=== PATIENT | male | born 1985 | race Caucasian/White ===

== ENCOUNTER 2021-06-03 11:31 | Inpatient (IN) | payer MEDICAID ==
[~2021-06-03] VITALS: Ht 177.8 cm; Wt 123.4 kg
[2021-06-03] MEDS ORDERED: ACETAMINOPHEN 500 MG TABLET PO ONE (12:00)
[2021-06-03] MEDS ORDERED: IV NORMAL SALINE 1000ML BAG 1,000 ML IV SCH (12:00)
[2021-06-03] MEDS ORDERED: KETOROLAC 15 MG/ML VIAL. IVP ONE (12:00)
--- NOTE | 2021-06-03 12:03 | PHYS DOC ---
Past Medical History Past Medical History Methamphetamine abuse Past Surgical History: No Surgical History Smoking Status: Current Every Day Smoker Alcohol Use: None Drug Use: Amphetamine General Adult EDM: Chief Complaint: SHORTNESS OF BREATH HPI: HPI: 36-year-old male presents to the emergency department complaining of multiple complaints including sweatiness, chest pain, shortness of breath, cough for the past several days. He also reports a low-grade fever and chills during this timeframe. He has not been vaccinated for COVID-19. No obvious sick contacts reported. The patient denies nausea, vomiting, abdominal pain, urinary symptoms, recent trauma, or any other complaints. Review of Systems: Review of Systems: Review of systems otherwise negative except for what was mentioned in the HPI Heart Score: C/O Chest Pain: Yes HEART Score for Chest Pain: HEART Score for Chest Pain Response (Comments) Value History Slighlty/Non-Suspicious 0 ECG Normal 0 Age < 45 0 Risk Factors 1 or 2 Risk Factors 1 Total 1 Allergies: Allergies: Allergies Coded Allergies Type Severity Reaction Last Updated Verified No Known Drug Allergies 06/03/21 No Physical Exam: PE: Constitutional: No acute distress, non-toxic appearance. Data for HENT: Atraumatic, bilateral external ears normal, nose normal. Eyes: PERRLA, EOMI, conjunctiva normal, no discharge. Neck: Normal range of motion, supple, no stridor. Cardiovascular: Heart rate regular rhythm. 2+ radial pulses Lungs & Thorax: No respiratory distress, symmetrical expansion. Abdomen: Soft, no tenderness Skin: Warm, dry. Extremities: No tenderness, no cyanosis, ROM intact, no edema. Neurologic: Alert and oriented X 3, normal motor function, normal sensory function, no focal deficits noted. Non ataxic gait. GCS 15. Psychologic: Affect normal, judgment normal, mood normal. Current Patient Data: Labs: Laboratory Tests Test 06/03/21 10:56 06/03/21 12:14 06/03/21 12:20 06/03/21 13:38 SARS-CoV-2 Antigen (Rapid) Positive (NEGATIVE) Influenza Type A Antigen Negative (NEGATIVE) Influenza Type B Antigen Negative (NEGATIVE) Urine Collection Type Unknown Urine Color Abril Urine Clarity Clear Urine pH 6.5 (<5.0-8.0) Urine Specific [place] 1.025 (1.000-1.030) Urine Protein 100 mg/dL (NEG-TRACE) Urine Glucose (UA) Negative mg/dL (NEG) Urine Ketones (Stick) Negative mg/dL (NEG) Urine Blood Negative (NEG) Urine Nitrite Negative (NEG) Urine Bilirubin Negative (NEG) Urine Urobilinogen Dipstick 4.0 mg/dL (0.2 mg/dL) Urine Leukocyte Esterase Negative (NEG) Urine RBC 0 /HPF (0-2) Urine WBC 1-4 /HPF (0-4) Urine Squamous Epithelial Cells Few /LPF Urine Bacteria 0 /HPF (0-FEW) Urine Mucus Slight /LPF Urine Opiates Screen Neg (NEG) Urine Methadone Screen Neg (NEG) Urine Barbiturates Neg (NEG) Urine Phencyclidine Screen Neg (NEG) Urine Amphetamine/Methamphetamine Pos (NEG) Urine Benzodiazepines Screen Pos (NEG) Urine Cocaine Screen Neg (NEG) Urine Cannabinoids Screen Pos (NEG) Urine Ethyl Alcohol Neg (NEG) White Blood Count 9.2 x10^3/uL (4.0-11.0) Red Blood Count 4.74 x10^6/uL (4.30-5.70) Hemoglobin 14.5 g/dL (13.0-17.5) Hematocrit 43.0 % (39.0-53.0) Mean Corpuscular Volume 91 fL (79-100) Mean Corpuscular Hemoglobin 31 pg (25-35) Mean Corpuscular Hemoglobin Concent 34 g/dL (31-37) Red Cell Distribution Width 14.7 % (11.5-14.5) Platelet Count 251 x10^3/uL (140-400) Neutrophils (%) (Auto) 81 % (31-73) Lymphocytes (%) (Auto) 11 % (24-48) Monocytes (%) (Auto) 7 % (0-9) Eosinophils (%) (Auto) 0 % (0-3) Basophils (%) (Auto) 0 % (0-3) Neutrophils # (Auto) 7.5 x10^3/uL (1.8-7.7) Lymphocytes # (Auto) 1.0 x10^3/uL (1.0-4.8) Monocytes # (Auto) 0.7 x10^3/uL (0.0-1.1) Eosinophils # (Auto) 0.0 x10^3/uL (0.0-0.7) Basophils # (Auto) 0.0 x10^3/uL (0.0-0.2) Sodium Level 135 mmol/L (136-145) Potassium Level 4.3 mmol/L (3.5-5.1) Chloride Level 99 mmol/L (98-107) Carbon Dioxide Level 24 mmol/L (21-32) Anion Gap 12 (6-14) Blood Urea Nitrogen 16 mg/dL (8-26) Creatinine 1.1 mg/dL (0.7-1.3) Estimated GFR (Cockcroft-Gault) 76.6 BUN/Creatinine Ratio 15 (6-20) Glucose Level 109 mg/dL (70-99) Calcium Level 8.6 mg/dL (8.5-10.1) Total Bilirubin 1.0 mg/dL (0.2-1.0) Aspartate Amino Transf (AST/SGOT) 37 U/L (15-37) Alanine Aminotransferase (ALT/SGPT) 49 U/L (16-63) Alkaline Phosphatase 109 U/L (46-116) Troponin I Quantitative 0.049 ng/mL (0.000-0.055) MC-Rji-F-Type Natriuretic Peptide 7641 pg/mL (0-124) Total Protein 6.9 g/dL (6.4-8.2) Albumin 3.2 g/dL (3.4-5.0) Albumin/Globulin Ratio 0.9 (1.0-1.7) Vital Signs: Vital Signs Date Time Temp Pulse Resp B/P (MAP) Pulse Ox O2 Delivery O2 Flow Rate FiO2 06/03/21 11:34 99.7 138 27 151/113 93 Room Air 99.7 EKG: EKG: Sinus tachycardia rate of 139, no ST-T wave changes, no ectopic beats, normal axis, normal KS, QRS, and QTc intervals. Impression: Tachycardic, no STEMI, no ischemic ST-T wave changes interpreted by meCamden D.O. Radiology/Procedures: Radiology/Procedures: XR CHEST 1V CLINICAL INDICATIONS: Reason: shortness of breath / Spl. Instructions: / History: COMPARISON: None available. Findings: There is mild bilateral diffuse interstitial pulmonary edema. Mild vascular congestion is seen. No pleural effusion or pneumothorax is evident. Significant cardiomegaly is seen. The the mediastinum is unremarkable. IMPRESSION: Mild CHF. Cardiomegaly. Pericardial effusion is possible. Electronically signed by: Edwin Gardner MD (06/03/2021 12:27 PM) . CTA CHEST INDICATION: shortness of breath, cough, cp, covid + Comparison: Chest radiograph 06/03/2021. TECHNIQUE: Following the uneventful administration of intravenous contrast, 100 cc Omnipaque 350, axial CT sections were obtained through the lungs and upper abdomen. Multiplanar reconstructions and MIP images were obtained. PQRS compliance statement: One or more of the following individualized dose reduction techniques were utilized for this examination: 1. Automated exposure control 2. Adjustment of the mA and/or kV according to patient size 3. Use of iterative reconstruction technique FINDINGS: Pulmonary arteries: No evidence of central or segmental pulmonary thromboembolic disease. Subsegmental branches not well evaluated due to respiratory motion. Dilated pulmonary trunk measures 38 mm. Lungs and Airways: Mild scattered groundglass opacities. Interlobular septal thickening. Bronchial wall thickening. Pleura: Small bilateral pleural effusions. Heart and Mediastinum: The visualized thyroid is normal in size and attenuation. No axillary or supraclavicular lymphadenopathy. No mediastinal, hilar or retrocrural lymphadenopathy. Marked cardiomegaly. Pericardial effusion measuring up to 12 mm in thickness. The great vessels of the thorax are normal. Abdomen: Limited images through the upper abdomen show no abnormality of the visualized organs. Bones and Soft Tissues: The visualized bones and chest wall soft tissues are within normal limits. IMPRESSION: 1. No evidence of central or segmental pulmonary thromboembolic disease. Subsegmental branches not well evaluated due to respiratory motion. 2. Mild scattered groundglass opacities with interlobular septal thickening consistent with pulmonary edema. Superimposed infection is not excluded. 3. Marked cardiomegaly with a pericardial effusion measuring 12 mm in thickness. 4. Small bilateral pleural effusions. 5. Dilated pulmonary trunk, which can be seen with pulmonary hypertension. Electronically signed by: Darrius Mckenna MD (06/03/2021 2:37 PM) Course & Med Decision Making: Course & Med Decision Making Patient remained presumably tachycardic, findings are suggestive of a pericardial effusion with COVID-19 viral infection. His CTA was negative for pulmonary embolism. I discussed case with cardiology who will see the patient in the emergency department. Patient will be admitted to the hospital under Dr. Patterson. My Orders - CAMDEN PORTILLO DO Procedure Category Date Status Time Vital Signs Monitoring ER 06/03/21 Transmitted 11:58 Blood Pressure ER 06/03/21 Transmitted Monitoring 11:58 Cardiac Monitoring ER 06/03/21 Transmitted 11:58 Oxygen Delivery JENNIFER 06/03/21 In Process Cbc W Autodiff LAB 06/03/21 Complete 11:58 Ua W Microscopic LAB 06/03/21 Complete 11:58 Drugs Of Abuse Ur LAB 06/03/21 Complete 11:[address] 06/03/21 Resulted 11:58 Troponin I Stat BANNER 06/03/21 In Process 11:58 Troponini LAB 06/03/21 Logged 14:58 Troponini LAB 06/03/21 Logged 17:58 12 Lead Ekg EKG 06/03/21 In Process 11:58 12 Lead Ekg EKG 06/03/21 In Process 12:28 Pulse Oximetry: BANNER 06/03/21 In Process Standing Order 11:58 Iv Normal Saline PHA 06/03/21 Complete 1000ml Bag (Iv Sodium 12:00 Ketorolac 15mg Vial PHA 06/03/21 Complete (Toradol 15mg Vial) 12:00 Acetaminophen PHA 06/03/21 Complete (Tylenol) 12:00 Chest Ap Only RAD 06/03/21 Resulted 11:58 Sars Antigen [place]ina Rapid LAB 06/03/21 Complete 11:58 Influenza A&B Rapid LAB 06/03/21 Complete 11:58 Comprehensive LAB 06/03/21 Complete Metabolic Panel 12:56 Nt-Pro Bnp LAB 06/03/21 Complete 12:56 Troponini LAB 06/03/21 Complete 12:56 Iohexol 350 Mg/Ml PHA 06/03/21 Complete (Omnipaque 350 Mg/Ml) 14:15 Furosemide Inj (Lasix) PHA 06/03/21 Complete 15:00 Er Bridge Order ADT 06/03/21 Transmitted 15:12 Code Status CODE 06/03/21 Transmitted 15:12 Vital Signs, Per Unit JENNIFER 06/03/21 In Process Protocol 15:12 Cardiac DIET 06/03/21 Transmitted Dinner Ambulate With JENNIFER 06/03/21 In Process Assistance 15:12 Cbc W Autodiff LAB 06/04/21 Verified 06:00 Basic Metabolic Panel LAB 06/04/21 Verified 06:00 Ondansetron Pf PHA 06/03/21 In Process (Zofran) 15:15 Consult Physician By CONS 06/03/21 Transmitted Name 15:12 Departure Departure Impression: Primary Impression: Pericardial effusion Additional Impression: COVID-19 Disposition: 09 ADMITTED INPATIENT Admitting Physician: ELISEO Dangelo) Condition: STABLE Referrals: NO PCP (PCP) CAMDEN PORTILLO DO Jun 03, 2021 12:03
--- NOTE | 2021-06-03 12:30 | RAD ---
XR CHEST 1V CLINICAL INDICATIONS: Reason: shortness of breath / Spl. Instructions: / History: COMPARISON: None available. Findings: There is mild bilateral diffuse interstitial pulmonary edema. Mild vascular congestion is s een. No pleural effusion or pneumothorax is evident. Significant cardiomegaly is seen. The the medias tinum is unremarkable. IMPRESSION: Mild CHF. Cardiomegaly. Pericardial effusion is possible. Electronically signed by: Edwin Gardner MD (06/03/2021 12:27 PM) [id number]
[2021-06-03 12:36] LABS: BARBITURATES NEG (NEG); BENZODIAZEPINES POS (NEG); BILIRUBIN,URINE NEGATIVE (NEG); CANNABINOIDS POS (NEG); CLARITY,URINE CLEAR; COCAINE NEG (NEG); COLOR,URINE AMBER; METHADONE NEG (NEG); NITRITE,URINE NEGATIVE (NEG); OPIATES NEG (NEG); PH,URINE 6.5 (<5.0-8.0); PHENCYCLIDINE NEG (NEG); PROTEIN,URINE 100 mg/dL (NEG-TRACE)
[2021-06-03 12:36] LABS: INFLUENZA A PATIENT NEGATIVE (NEGATIVE); INFLUENZA B PATIENT NEGATIVE (NEGATIVE)
[2021-06-03 12:41] LABS: AMPHETAMINE/METHAMPHETAMINE POS (NEG); BACTERIA,URINE 0 /HPF (0-FEW); RBC,URINE 0 /HPF (0-2)
[2021-06-03 13:54] LABS: BASO % 0 % (0-3); EOS % 0 % (0-3); HEMOGLOBIN 14.5 g/dL (13.0-17.5); LYMPH % 11 % (24-48); MEAN CORPUSCULAR HEMOGLOBIN 31 pg (25-35); MEAN CORPUSCULAR HGB CONC 34 g/dL (31-37); MEAN CORPUSCULAR VOLUME 91 fL (79-100); MONO # 0.7 x10^3/uL (0.0-1.1); MONO % 7 % (0-9); NEUT # 7.5 x10^3/uL (1.8-7.7); NEUT % 81 % (31-73); PLATELET COUNT 251 x10^3/uL (140-400); RED BLOOD COUNT 4.74 x10^6/uL (4.30-5.70); RED CELL DISTRIBUTION WIDTH 14.7 % (11.5-14.5); WHITE BLOOD COUNT 9.2 x10^3/uL (4.0-11.0)
[2021-06-03 14:04] LABS: CALCIUM 8.6 mg/dL (8.5-10.1); CREATININE 1.1 mg/dL (0.7-1.3); GFR 76.6; POTASSIUM 4.3 mmol/L (3.5-5.1)
[2021-06-03 14:10] LABS: ALBUMIN 3.2 g/dL (3.4-5.0); ALBUMIN/GLOBULIN RATIO 0.9 (1.0-1.7); TOTAL PROTEIN 6.9 g/dL (6.4-8.2)
[2021-06-03] MEDS ORDERED: IOHEXOL 350 MG/ML 100 ML VIAL. IV ONE (14:15)
--- NOTE | 2021-06-03 14:40 | RAD ---
CTA CHEST INDICATION: shortness of breath, cough, cp, covid + Comparison: Chest radiograph 06/03/2021. TECHNIQUE: Following the uneventful administration of intravenous contrast, 100 cc Omnipaque 350, axi al CT sections were obtained through the lungs and upper abdomen. Multiplanar reconstructions and MIP images were obtained. PQRS compliance statement: One or more of the following individualized dose reduction techniques were utilized for this examinat ion: 1. Automated exposure control 2. Adjustment of the mA and/or kV according to patient size 3. Use of iterative reconstruction technique FINDINGS: Pulmonary arteries: No evidence of central or segmental pulmonary thromboembolic disease. Subsegmenta l branches not well evaluated due to respiratory motion. Dilated pulmonary trunk measures 38 mm. Lungs and Airways: Mild scattered groundglass opacities. Interlobular septal thickening. Bronchial wa ll thickening. Pleura: Small bilateral pleural effusions. Heart and Mediastinum: The visualized thyroid is normal in size and attenuation. No axillary or supra clavicular lymphadenopathy. No mediastinal, hilar or retrocrural lymphadenopathy. Marked cardiomegaly . Pericardial effusion measuring up to 12 mm in thickness. The great vessels of the thorax are normal . Abdomen: Limited images through the upper abdomen show no abnormality of the visualized organs. Bones and Soft Tissues: The visualized bones and chest wall soft tissues are within normal limits. IMPRESSION: 1. No evidence of central or segmental pulmonary thromboembolic disease. Subsegmental branches not we ll evaluated due to respiratory motion. 2. Mild scattered groundglass opacities with interlobular septal thickening consistent with pulmonary edema. Superimposed infection is not excluded. 3. Marked cardiomegaly with a pericardial effusion measuring 12 mm in thickness. 4. Small bilateral pleural effusions. 5. Dilated pulmonary trunk, which can be seen with pulmonary hypertension. Electronically signed by: Darrius Mckenna MD (06/03/2021 2:37 PM) [id number]
[2021-06-03] MEDS ORDERED: FUROSEMIDE 40 MG/4 ML VIAL. IVP ONE (15:00)
[2021-06-03] MEDS ORDERED: ONDANSETRON PF 4 MG/2 ML VIAL. IVP PRN (15:15)
--- NOTE | 2021-06-03 15:41 | PDOC2 ---
REMIGIO FAUST MACHINE DESIGNER 06/03/21 1541: CARDIAC CONSULT DATE OF CONSULT Date of Consult DATE: 06/03/21 TIME: 15:22 REASON FOR CONSULT Reason for Consult: pericardial effusion REFERRING PHYSICIAN Referring Physician: Nitin SOURCE Source: Chart review, Patient HISTORY OF PRESENT ILLNESS HISTORY OF PRESENT ILLNESS This is a 36 yo male admitted for complains chest pain, SOA and cough and fever. He has been tested for covid-19 and UDS+ for marijuana and methamphetamines. He is unvaccinated. He has been having these symptoms including midchest tightness in the last 4 days. No diarrhea, lost of taste or smell. Reported that he may have gotten the covid-19 from son who goes to school. No hx of CAD, VTE or arrhythmias. Reports last time he used meth was over week ago and injected it to his arm. He does not take any routine medications. No nausea or vomiting. PAST MEDICAL HISTORY Past Medical History No pertinent history PAST SURGICAL HISTORY Past Surgical History: No pertinent history FAMILY HISTORY Family History: Coronary Artery Disease (grandfather) SOCIAL HISTORY Smoke: <1 pack per day ALCOHOL: occassional Drugs: Marijuana, Crystal meth Lives: with Family CURRENT MEDICATIONS CURRENT MEDICATIONS Current Medications Medications (Trade) Dose Ordered Sig/Lisset Route PRN Reason Start Time Stop Time Status Last Admin Dose Admin Sodium Chloride 1,000 ml @ 1,000 mls/hr Q1H IV 06/03/21 12:00 06/03/21 12:59 DC 06/03/21 12:07 Ketorolac Tromethamine (Toradol 15mg Vial) 15 mg 1X ONCE IVP 06/03/21 12:00 06/03/21 12:07 DC 06/03/21 12:09 Acetaminophen (Tylenol) 1,000 mg 1X ONCE PO 06/03/21 12:00 06/03/21 12:07 DC 06/03/21 12:10 Furosemide (Lasix) 40 mg 1X ONCE IVP 06/03/21 15:00 06/03/21 15:01 DC 06/03/21 15:02 ALLERGIES ALLERGIES: Coded Allergies: No Known Drug Allergies (Unverified , 06/03/21) ROS Review of System 14 point ROS evaluated with pertinent positives noted per HPI PHYSICAL EXAM General: Alert, Oriented X3, Cooperative, mild distress HEENT: Atraumatic, Mucous membr. moist/pink Lungs: Other (diminished with basilar crackles) Heart: Regular rate (SR/ST), Normal S1, Normal S2, No murmurs, Other (S3) Abdomen: Soft, Other (obese) Extremities: No cyanosis, Other (2+ bilateral LE pitting edema) Skin: Other (left arm needle tracks; scattered generalized insect bites) Neuro: Normal speech, Sensation intact Psych/Mental Status: Mental status NL, Mood NL MUSCULOSKELETAL: Full range of motion without pain VITALS/I&O VITALS/I&O: Vital Signs Date Time Temp Pulse Resp B/P (MAP) Pulse Ox O2 Delivery O2 Flow Rate FiO2 06/03/21 11:34 99.7 138 27 151/113 93 Room Air 99.7 LABS Lab: Laboratory Tests Test 06/03/21 10:56 06/03/21 12:14 06/03/21 12:20 06/03/21 13:38 SARS-CoV-2 Antigen (Rapid) Positive (NEGATIVE) *A Influenza Type A Antigen Negative (NEGATIVE) Influenza Type B Antigen Negative (NEGATIVE) Urine Collection Type Unknown Urine Color Abril Urine Clarity Clear Urine pH 6.5 (<5.0-8.0) Urine Specific [place] 1.025 (1.000-1.030) Urine Protein 100 mg/dL (NEG-TRACE) Urine Glucose (UA) Negative mg/dL (NEG) Urine Ketones (Stick) Negative mg/dL (NEG) Urine Blood Negative (NEG) Urine Nitrite Negative (NEG) Urine Bilirubin Negative (NEG) Urine Urobilinogen Dipstick 4.0 mg/dL (0.2 mg/dL) Urine Leukocyte Esterase Negative (NEG) Urine RBC 0 /HPF (0-2) Urine WBC 1-4 /HPF (0-4) Urine Squamous Epithelial Cells Few /LPF Urine Bacteria 0 /HPF (0-FEW) Urine Mucus Slight /LPF Urine Opiates Screen Neg (NEG) Urine Methadone Screen Neg (NEG) Urine Barbiturates Neg (NEG) Urine Phencyclidine Screen Neg (NEG) Urine Amphetamine/Methamphetamine Pos (NEG) Urine Benzodiazepines Screen Pos (NEG) Urine Cocaine Screen Neg (NEG) Urine Cannabinoids Screen Pos (NEG) Urine Ethyl Alcohol Neg (NEG) White Blood Count 9.2 x10^3/uL (4.0-11.0) Red Blood Count 4.74 x10^6/uL (4.30-5.70) Hemoglobin 14.5 g/dL (13.0-17.5) Hematocrit 43.0 % (39.0-53.0) Mean Corpuscular Volume 91 fL (79-100) Mean Corpuscular Hemoglobin 31 pg (25-35) Mean Corpuscular Hemoglobin Concent 34 g/dL (31-37) Red Cell Distribution Width 14.7 % (11.5-14.5) H Platelet Count 251 x10^3/uL (140-400) Neutrophils (%) (Auto) 81 % (31-73) H Lymphocytes (%) (Auto) 11 % (24-48) L Monocytes (%) (Auto) 7 % (0-9) Eosinophils (%) (Auto) 0 % (0-3) Basophils (%) (Auto) 0 % (0-3) Neutrophils # (Auto) 7.5 x10^3/uL (1.8-7.7) Lymphocytes # (Auto) 1.0 x10^3/uL (1.0-4.8) Monocytes # (Auto) 0.7 x10^3/uL (0.0-1.1) Eosinophils # (Auto) 0.0 x10^3/uL (0.0-0.7) Basophils # (Auto) 0.0 x10^3/uL (0.0-0.2) Sodium Level 135 mmol/L (136-145) L Potassium Level 4.3 mmol/L (3.5-5.1) Chloride Level 99 mmol/L (98-107) Carbon Dioxide Level 24 mmol/L (21-32) Anion Gap 12 (6-14) Blood Urea Nitrogen 16 mg/dL (8-26) Creatinine 1.1 mg/dL (0.7-1.3) Estimated GFR (Cockcroft-Gault) 76.6 BUN/Creatinine Ratio 15 (6-20) Glucose Level 109 mg/dL (70-99) H Calcium Level 8.6 mg/dL (8.5-10.1) Total Bilirubin 1.0 mg/dL (0.2-1.0) Aspartate Amino Transferase (AST) 37 U/L (15-37) Alanine Aminotransferase (ALT) 49 U/L (16-63) Alkaline Phosphatase 109 U/L (46-116) Troponin I Quantitative 0.049 ng/mL (0.000-0.055) PH-Qlo-Z-Type Natriuretic Peptide 7641 pg/mL (0-124) H Total Protein 6.9 g/dL (6.4-8.2) Albumin 3.2 g/dL (3.4-5.0) L Albumin/Globulin Ratio 0.9 (1.0-1.7) L Laboratory Tests 06/03/21 13:38 Laboratory Tests 06/03/21 13:38 ASSESSMENT/PLAN ASSESSMENT/PLAN 1. Covid-19/fever: unvaccinated 2. Acute CHF with possible systolic/diastolic CHF 3. Pericardial effusion: no hemodynamic compromise. likely from covid-19 and substance abuse 4. Substance abuse: UDS+ for meth, marijuana and benzodiazepine 5. Sinus tachycardia 6. Tobaccoism 7. Chest pain: Myocarditis related covid-19 could not be ruled out. 8. Chest pain: no PE per CTA 9. Morbid obesity Recommendations 1. Lasix therapy, repeat troponin 2. Covid-19 treatment per pulmonary 3. Hold BB. Start norvasc. ASA 4. Limited TTE tomorrow and will note effusion and any semblance of vegetation 5. Lifestyle modification abstinence to illicit drugs and smoking ALMA DELIA YIP MD 06/03/21 1706: CARDIAC CONSULT ASSESSMENT/PLAN ASSESSMENT/PLAN The patient was seen and interviewed as well as examined at the bedside. The chart was reviewed. The case was discussed. Agree with the plan of care. CT scan reviewed. Small pericardial effusion. Low suspicion for any tamponade physiology. Check echo. Supportive care. REMIGIO FAUST APRN Jun 03, 2021 15:41 ALMA DELIA YIP MD Jun 03, 2021 17:06
[2021-06-03 16:20] LABS: MAGNESIUM 1.7 mg/dL (1.8-2.4)
[2021-06-03] MEDS ORDERED: ENALAPRILAT 1.25 MG/ML VIAL. IVP PRN (16:30)
[2021-06-03] MEDS ORDERED: guaiFENesin/CODEINE 100mg/10mg 5 ML LIQUID PO PRN (17:45)
[2021-06-03] MEDS ORDERED: PIP/TAZO PER PHARMACY MC PRN (17:45)
[2021-06-03] MEDS ORDERED: PIPERACILLIN/TAZOBACTAM 4.5 GM in IV NORMAL SALINE 100ML 100 ML IV ONE (18:00)
--- NOTE | 2021-06-03 18:28 | HP ---
ADMIT DATE: 06/03/2021 CHIEF COMPLAINT: Shortness of breath. HISTORY OF PRESENT ILLNESS: The patient is a pleasant 36-year-old male who has been injecting methamphetamine. He now presents with shortness of breath, has some associated chest tightness, this has been occurring for several days. He has been sweating. We tested him for COVID here in the ER, he is COVID positive. He also has pericardial effusion and an elevated BNP of 7000. He is hypoxic with a sat in the 90s on room air. I discussed the case with ER physician. We are going to admit the patient and consult Infectious Disease and Cardiology. PAST MEDICAL HISTORY: Methamphetamine abuse, tobacco abuse. ALLERGIES: None. FAMILY HISTORY: Diabetes. SOCIAL HISTORY: He does use IV methamphetamine. He smokes. He drinks socially. He has a girlfriend. He has a cat at home. MEDICATIONS: Reviewed, please refer to the MRAD. REVIEW OF SYSTEMS: GENERAL: No history of weight change, weakness or fevers. SKIN: He complains of some itching and sweating. EYES: No blurred, double or loss of vision. NOSE AND THROAT: No history of nosebleeds, hoarseness or sore throat. HEART: No history of palpitations, chest pain or shortness of breath on exertion. PULMONARY: He complains of shortness of breath. GASTROINTESTINAL: Denies changes in appetite, nausea, vomiting, diarrhea or constipation. GENITOURINARY: No history of frequency, urgency, hesitancy or nocturia. NEUROLOGIC: He complains of weakness. PSYCHIATRIC: No history of panic, anxiety or depression. ENDOCRINE: No history of heat or cold intolerance, polyuria or polydipsia. EXTREMITIES: Denies muscle weakness, joint pain, pain on walking or stiffness. . PHYSICAL EXAMINATION: VITALS: Within normal limits and are stable. GENERAL: He is weak and sweating. HEENT: Normal cephalic atraumatic, external auditory canals are patent. EYES: Extraocular muscles are intact, pupils are equally round and reactive to light and accommodation. MUSCULOSKELETAL: Well developed, well nourished, good range of motion. ENDOCRINE: No thyromegaly was palpated. LYMPHATICS: No cervical chain or axillary nodes were noted. HEMATOPOIETIC: No bruising. NECK: Supple, no JVD, no thyromegaly was noted. PULMONARY: He has bibasilar crackles. HEART: RRR, S1, S2 present. Peripheral pulses intact, no obvious murmurs were noted. ABDOMEN: Soft, nontender. Positive bowel sounds no organomegaly, normal bowel sounds. EXTREMITIES: Without any cyanosis, clubbing, or edema. Pedal pulses intact, Homans sign is negative. NEUROLOGIC: Normal speech, normal tone. A and O x 3, moves all extremities, no obvious focal deficits. PSYCHIATRIC: He is depressed, anxious. SKIN: He is sweating. He is pale. VASCULAR: Good capillary refill, neurovascular bundle appears to be intact. LABORATORY DATA: White 9. Sodium is 135. Urinalysis negative. Drug screen positive for methamphetamine. Serology positive for COVID-19. Chest x-ray shows pericardial effusion. CTA of the chest shows no pulmonary emboli. He does have pulmonary edema. He has got enlarged heart with cardiomegaly and pericardial effusion, 12 mm. He has got bilateral pleural effusions and a dilated pulmonary trunk consistent with pulmonary hypertension. ASSESSMENT AND PLAN: Respiratory failure secondary to COVID-19 and methamphetamine abuse with incidental finding of a pericardial effusion; acute on chronic systolic, diastolic heart failure; hyponatremia. The patient has been admitted. We will consult Infectious Disease, consult Cardiology. Cardiac monitoring, serial enzymes, serial EKGs, echocardiogram. Home meds. DVT prophylaxis. Full code. nutrition services aide for drug rehabilitation. We will start COVID protocol including remdesivir, steroids, broad spectrum antibiotics, doxycycline, vitamins and minerals, oxygen, codeine cough syrup, aspirin and Lovenox. PROGNOSIS: Extremely guarded. CC TIME: [address]: Markus TID: [id number]
[2021-06-03 19:00] VITALS: BP 169/97
[2021-06-03] MEDS ORDERED: REMDESIVIR LOAD in IV NORMAL SALINE 250ML TV IV ONE (19:00)
[2021-06-03] MEDS: methylPREDNISolone SOD SUCC PF 40 MG/ML VIAL. IV SCH (20:16)
[2021-06-03] MEDS ORDERED: DOXYCYCLINE HYCLATE 100 MG in IV DEXTROSE 5% 100ML 100 ML IV SCH (21:00)
[2021-06-03 22:55] VITALS: BP 146/94
[2021-06-03] MEDS: PIPERACILLIN/TAZOBACTAM 4.5 GM in IV NORMAL SALINE 100ML 100 ML IV SCH (23:53)
[2021-06-04] VITALS (7 sets, daily range): BP systolic 118–161; BP diastolic 45–103
[2021-06-04] MEDS: PIPERACILLIN/TAZOBACTAM 4.5 GM in IV NORMAL SALINE 100ML 100 ML IV SCH (06:06)
[2021-06-04 06:50] LABS: BASO % 0 % (0-3); EOS % 0 % (0-3); HEMATOCRIT 43.1 % (39.0-53.0); HEMOGLOBIN 14.6 g/dL (13.0-17.5); LYMPH # 0.7 x10^3/uL (1.0-4.8); LYMPH % 8 % (24-48); MEAN CORPUSCULAR HEMOGLOBIN 31 pg (25-35); MEAN CORPUSCULAR HGB CONC 34 g/dL (31-37); MEAN CORPUSCULAR VOLUME 90 fL (79-100); MONO # 0.6 x10^3/uL (0.0-1.1); MONO % 6 % (0-9); NEUT # 7.7 x10^3/uL (1.8-7.7); NEUT % 86 % (31-73); PLATELET COUNT 226 x10^3/uL (140-400); RED BLOOD COUNT 4.78 x10^6/uL (4.30-5.70); RED CELL DISTRIBUTION WIDTH 14.8 % (11.5-14.5); WHITE BLOOD COUNT 8.9 x10^3/uL (4.0-11.0)
[2021-06-04 07:12] LABS: CHOLESTEROL/HDL RATIO 3.8; CREATININE 1.3 mg/dL (0.7-1.3); GFR 63.2; MAGNESIUM 1.8 mg/dL (1.8-2.4); POTASSIUM 4.6 mmol/L (3.5-5.1)
[2021-06-04] MEDS ORDERED: ASPIRIN CHEWABLE 81 MG TABLET. PO SCH (08:00)
[2021-06-04] MEDS ORDERED: LACTOBACILLUS RHAMNOSUS GG 1 CAPSULE. PO SCH (09:00)
--- NOTE | 2021-06-04 09:38 | CONS ---
DATE OF CONSULTATION: 06/04/2021 REQUESTING PHYSICIAN: Zurdo Patterson MD REASON FOR CONSULTATION: COVID positive. HISTORY OF PRESENT ILLNESS: This is a 36-year-old gentleman who had been injecting methamphetamine. The patient came in with shortness of breath. The patient was found to have COVID positive. The patient is on room air, still, but the patient was on CHF with BNP of 7000. With diuresis, he is feeling better. He is on room air and denies any fever, denies any nausea, vomiting, diarrhea. Denies any chest pain, shortness of breath, abdominal pain, urinary symptoms or bowel symptoms. On admission, he did have 99.7 temperature. PAST MEDICAL HISTORY: Positive for obesity. The patient other than drug use history, no other history. SOCIAL HISTORY: Positive for meth use. Does smoke and occasional alcohol use. CURRENT MEDICATIONS: Reviewed. REVIEW OF SYSTEMS: As in HPI. All other systems reviewed are negative. PHYSICAL EXAMINATION: GENERAL: Alert and oriented gentleman, not in distress. VITAL SIGNS: Stable, afebrile. HEENT: NAD. NECK: Supple, no JVP, no lymphadenopathy. LUNGS: Clear. HEART: S1, S2 regular. ABDOMEN: Soft, nontender, no organomegaly. EXTREMITIES: No edema, cyanosis. SKIN: Unremarkable. NEUROLOGIC: The patient is alert, awake, and appropriate. No focal neurologic deficit. LABORATORY DATA: White count is normal at 8.9, platelets are normal. BUN and creatinine is normal. His BNP was 7641. COVID-19 positive. Chest x-ray and chest CT showed mild scattered ground glass opacity with septal thickening consistent with pulmonary edema. IMPRESSION: 1. COVID-19 positive. 2. Hypoxia, likely secondary to congestive heart failure, which has improved. The patient is on room air now, comfortable. 3. Methamphetamine use. 4. Obesity. RECOMMENDATIONS: I do not see the need for any antibiotics. We will discontinue doxycycline and Zosyn. If he remains afebrile and on room air, then patient can be discharged. The patient was advised to not use street drugs, which he agreed, supportive care and will continue to follow. Thank you very much, Dr. Patterson, for giving me opportunity to participate in this patient's care. SHAKILA/CECILY DR: Raghu TID: [id number] MTDD
[2021-06-04 09:59] LABS: C-REACTIVE PROTEIN 47.3 mg/L (0-3.3)
--- NOTE | 2021-06-04 09:59 | PDOC ---
[facility] PROGRESS NOTE Date of Service DOS: DATE: 06/04/21 TIME: 09:56 Chief Complaint Chief Complaint Respiratory failure secondary to COVID-19 Methamphetamine abuse with incidental finding of a pericardial effusion Acute on chronic systolic, diastolic heart failure Hyponatremia History of Present Illness History of Present Illness 06/04: Mr. Wallace was seen and evaluated this morning in his room. He was lying on his right side and resting upon interview. He states that his chest pain is no longer present and at this time, he just feels tired. Mr. Wallace is currently on the COVID-19 Protocol (Remdesivir Day 2, Multivitamins, Lasix, Aspirin, Methyl prednisolone, Guaifenesin/Codeine, Piperacillin/Tazobactam). His chart was reviewed and I discussed his disposition with his nurse. Vitals/I&O Vitals/I&O: Vital Signs Date Time Temp Pulse Resp B/P (MAP) Pulse Ox O2 Delivery O2 Flow Rate FiO2 06/04/21 07:47 97.2 122 24 143/90 (107) 97 Nasal Cannula 2.0 97.2 I & O 06/03/21 06/03/21 06/04/21 15:00 23:00 07:00 Intake Total 1240 ml 400 ml Output Total 600 ml 1200 ml Balance 640 ml -800 ml Physical Exam General: Alert, Oriented X3, Cooperative, mild distress Heart: Regular rate (SR/ST), No murmurs, Other (S3) Abdomen: Normal bowel sounds, Other (obese) Extremities: No clubbing, Other (2+ bilateral LE pitting edema) Skin: No rashes, Other (left arm needle tracks; scattered generalized insect bites) Labs Labs: Laboratory Tests Test 06/03/21 10:56 06/03/21 12:14 06/03/21 12:20 06/03/21 13:38 SARS-CoV-2 Antigen (Rapid) Positive (NEGATIVE) Influenza Type A Antigen Negative (NEGATIVE) Influenza Type B Antigen Negative (NEGATIVE) Urine Collection Type Unknown Urine Color Abril Urine Clarity Clear Urine pH 6.5 (<5.0-8.0) Urine Specific Anderson 1.025 (1.000-1.030) Urine Protein 100 mg/dL (NEG-TRACE) Urine Glucose (UA) Negative mg/dL (NEG) Urine Ketones (Stick) Negative mg/dL (NEG) Urine Blood Negative (NEG) Urine Nitrite Negative (NEG) Urine Bilirubin Negative (NEG) Urine Urobilinogen Dipstick 4.0 mg/dL (0.2 mg/dL) Urine Leukocyte Esterase Negative (NEG) Urine RBC 0 /HPF (0-2) Urine WBC 1-4 /HPF (0-4) Urine Squamous Epithelial Cells Few /LPF Urine Bacteria 0 /HPF (0-FEW) Urine Mucus Slight /LPF Urine Opiates Screen Neg (NEG) Urine Methadone Screen Neg (NEG) Urine Barbiturates Neg (NEG) Urine Phencyclidine Screen Neg (NEG) Urine Amphetamine/Methamphetamine Pos (NEG) Urine Benzodiazepines Screen Pos (NEG) Urine Cocaine Screen Neg (NEG) Urine Cannabinoids Screen Pos (NEG) Urine Ethyl Alcohol Neg (NEG) White Blood Count 9.2 x10^3/uL (4.0-11.0) Red Blood Count 4.74 x10^6/uL (4.30-5.70) Hemoglobin 14.5 g/dL (13.0-17.5) Hematocrit 43.0 % (39.0-53.0) Mean Corpuscular Volume 91 fL (79-100) Mean Corpuscular Hemoglobin 31 pg (25-35) Mean Corpuscular Hemoglobin Concent 34 g/dL (31-37) Red Cell Distribution Width 14.7 % (11.5-14.5) Platelet Count 251 x10^3/uL (140-400) Neutrophils (%) (Auto) 81 % (31-73) Lymphocytes (%) (Auto) 11 % (24-48) Monocytes (%) (Auto) 7 % (0-9) Eosinophils (%) (Auto) 0 % (0-3) Basophils (%) (Auto) 0 % (0-3) Neutrophils # (Auto) 7.5 x10^3/uL (1.8-7.7) Lymphocytes # (Auto) 1.0 x10^3/uL (1.0-4.8) Monocytes # (Auto) 0.7 x10^3/uL (0.0-1.1) Eosinophils # (Auto) 0.0 x10^3/uL (0.0-0.7) Basophils # (Auto) 0.0 x10^3/uL (0.0-0.2) Sodium Level 135 mmol/L (136-145) Potassium Level 4.3 mmol/L (3.5-5.1) Chloride Level 99 mmol/L (98-107) Carbon Dioxide Level 24 mmol/L (21-32) Anion Gap 12 (6-14) Blood Urea Nitrogen 16 mg/dL (8-26) Creatinine 1.1 mg/dL (0.7-1.3) Estimated GFR (Cockcroft-Gault) 76.6 BUN/Creatinine Ratio 15 (6-20) Glucose Level 109 mg/dL (70-99) Calcium Level 8.6 mg/dL (8.5-10.1) Magnesium Level 1.7 mg/dL (1.8-2.4) Total Bilirubin 1.0 mg/dL (0.2-1.0) Aspartate Amino Transf (AST/SGOT) 37 U/L (15-37) Alanine Aminotransferase (ALT/SGPT) 49 U/L (16-63) Alkaline Phosphatase 109 U/L (46-116) Creatine Kinase 187 U/L (39-308) Troponin I Quantitative 0.049 ng/mL (0.000-0.055) ZH-Vly-S-Type Natriuretic Peptide 7641 pg/mL (0-124) Total Protein 6.9 g/dL (6.4-8.2) Albumin 3.2 g/dL (3.4-5.0) Albumin/Globulin Ratio 0.9 (1.0-1.7) Thyroid Stimulating Hormone (TSH) 3.546 uIU/mL (0.358-3.74) Test 06/03/21 16:50 06/04/21 04:00 06/04/21 05:00 Troponin I Quantitative 0.096 ng/mL (0.000-0.055) 0.072 ng/mL (0.000-0.055) Sodium Level 136 mmol/L (136-145) Potassium Level 4.6 mmol/L (3.5-5.1) Chloride Level 97 mmol/L (98-107) Carbon Dioxide Level 30 mmol/L (21-32) Anion Gap 9 (6-14) Blood Urea Nitrogen 17 mg/dL (8-26) Creatinine 1.3 mg/dL (0.7-1.3) Estimated GFR (Cockcroft-Gault) 63.2 Glucose Level 90 mg/dL (70-99) Calcium Level 8.0 mg/dL (8.5-10.1) Magnesium Level 1.8 mg/dL (1.8-2.4) Triglycerides Level 58 mg/dL (0-150) Cholesterol Level 95 mg/dL (0-200) LDL Cholesterol, Calculated 58 mg/dL (0-100) VLDL Cholesterol, Calculated 12 mg/dL (0-40) Non-HDL Cholesterol Calculated 70 mg/dL (0-129) HDL Cholesterol 25 mg/dL (40-60) Cholesterol/HDL Ratio 3.8 White Blood Count 8.9 x10^3/uL (4.0-11.0) Red Blood Count 4.78 x10^6/uL (4.30-5.70) Hemoglobin 14.6 g/dL (13.0-17.5) Hematocrit 43.1 % (39.0-53.0) Mean Corpuscular Volume 90 fL (79-100) Mean Corpuscular Hemoglobin 31 pg (25-35) Mean Corpuscular Hemoglobin Concent 34 g/dL (31-37) Red Cell Distribution Width 14.8 % (11.5-14.5) Platelet Count 226 x10^3/uL (140-400) Neutrophils (%) (Auto) 86 % (31-73) Lymphocytes (%) (Auto) 8 % (24-48) Monocytes (%) (Auto) 6 % (0-9) Eosinophils (%) (Auto) 0 % (0-3) Basophils (%) (Auto) 0 % (0-3) Neutrophils # (Auto) 7.7 x10^3/uL (1.8-7.7) Lymphocytes # (Auto) 0.7 x10^3/uL (1.0-4.8) Monocytes # (Auto) 0.6 x10^3/uL (0.0-1.1) Eosinophils # (Auto) 0.0 x10^3/uL (0.0-0.7) Basophils # (Auto) 0.0 x10^3/uL (0.0-0.2) Review of Systems Review of Systems: No Bleeding No Headache Assessment and Plan Assessmemt and Plan Problems Medical Problems: (1) COVID-19 Status: Acute (2) Pericardial effusion Status: Acute Assessment: 1. Respiratory failure secondary to COVID-19 2. Methamphetamine abuse 3. Pericardial Effusion 4. Acute on chronic systolic, diastolic heart failure 5. Hyponatremia Plan: 1. Continue COVID-19 Protocol 2. Continue respiratory isolation 3. Cardiac monitoring. 4. Home medications 5. DVT prophylaxis (Lovenox 40mg) Comment Review of Relevant I have reviewed the following items ashley (where applicable) has been applied. Medications: Current Medications Medications (Trade) Dose Ordered Sig/Lisset Route PRN Reason Start Time Stop Time Status Last Admin Dose Admin Sodium Chloride 1,000 ml @ 1,000 mls/hr Q1H IV 06/03/21 12:00 06/03/21 12:59 DC 06/03/21 12:07 Ketorolac Tromethamine (Toradol 15mg Vial) 15 mg 1X ONCE IVP 06/03/21 12:00 06/03/21 12:07 DC 06/03/21 12:09 Acetaminophen (Tylenol) 1,000 mg 1X ONCE PO 06/03/21 12:00 06/03/21 12:07 DC 06/03/21 12:10 Furosemide (Lasix) 40 mg 1X ONCE IVP 06/03/21 15:00 06/03/21 15:01 DC 06/03/21 15:02 Amlodipine Besylate (Norvasc) 10 mg 1X ONCE PO 06/03/21 16:30 06/03/21 16:43 DC 06/03/21 16:56 Doxycycline Hyclate 100 mg/ Dextrose 100 ml @ 50 mls/hr Q12HR IV 06/03/21 21:00 06/04/21 09:23 DC 06/03/21 21:31 Methylprednisolone Sodium Succinate (SOLU-Medrol 40MG VIAL) 40 mg BID IV 06/03/21 21:00 06/03/21 20:16 Guaifenesin/ Codeine Phosphate (Robitussin Ac) 5 ml PRN Q6HRS PRN PO COUGH 06/03/21 17:45 06/03/21 23:10 Piperacillin Sod/ Tazobactam Sod 4.5 gm/Sodium Chloride 100 ml @ 200 mls/hr 1X ONCE IV 06/03/21 18:00 06/03/21 18:29 DC 06/03/21 18:06 Remdesivir 200 mg/ Sodium Chloride 210 ml @ 210 mls/hr 1X ONCE IV 06/03/21 19:00 06/03/21 19:59 DC 06/03/21 19:54 Piperacillin Sod/ Tazobactam Sod 4.5 gm/Sodium Chloride 100 ml @ 200 mls/hr Q6HRS IV 06/04/21 00:00 06/04/21 09:23 DC 06/04/21 06:06 Justifications for Admission Other Justification CHOLO HERRERA III DO Jun 04, 2021 09:59
[2021-06-04] MEDS: methylPREDNISolone SOD SUCC PF 40 MG/ML VIAL. IV SCH ×2 (10:11→21:18)
[2021-06-04] MEDS: MULTIVITAMIN with MINERAL TABLET. PO SCH (10:11)
[2021-06-04] MEDS: FUROSEMIDE 40 MG/4 ML VIAL. IVP SCH (10:11)
[2021-06-04] MEDS: ASPIRIN ENTERIC COATED 81 MG TABLET.DR. PO SCH (10:14)
--- NOTE | 2021-06-04 13:04 | NUR ---
SS following for discharge planning. SS reviewed pt chart and discussed with pt RN. Pt is from home and is currently requiring oxygen at two liters nasal canula. COVID19 positive. Pt on IV Lasix, IV Remdesivir, and IV Solu-Medrol. Pt Methamphetamine and THC positive. SS will continue to follow for discharge planning.
--- NOTE | 2021-06-04 13:40 | PDOC ---
REMIGIO FAUST DIRECTOR OF [facility] 06/04/21 1340: CARDIO Progress Notes Date and Time Date of Service 06/04/2021 Time of Evaluation 1320 Subjective Subjective: No Chest Pain, No shortness of breath, No Palpitations Vitals Vitals Vital Signs Date Time Temp Pulse Resp B/P (MAP) Pulse Ox O2 Delivery O2 Flow Rate FiO2 06/04/21 10:49 97.4 122 24 161/103 (122) 96 Nasal Cannula 2.0 97.4 Weight Weight [ ] Input and Output Intake and Output Intake and Output 06/04/21 07:00 Intake Total 1640 ml Output Total 1800 ml Balance -160 ml Intake Oral 640 ml IV Total 1000 ml Output Urine Total 1800 ml Laboratory Labs Laboratory Tests Test 06/03/21 13:38 06/03/21 16:50 06/04/21 04:00 06/04/21 05:00 White Blood Count 9.2 x10^3/uL (4.0-11.0) 8.9 x10^3/uL (4.0-11.0) Red Blood Count 4.74 x10^6/uL (4.30-5.70) 4.78 x10^6/uL (4.30-5.70) Hemoglobin 14.5 g/dL (13.0-17.5) 14.6 g/dL (13.0-17.5) Hematocrit 43.0 % (39.0-53.0) 43.1 % (39.0-53.0) Mean Corpuscular Volume 91 fL (79-100) 90 fL (79-100) Mean Corpuscular Hemoglobin 31 pg (25-35) 31 pg (25-35) Mean Corpuscular Hemoglobin Concent 34 g/dL (31-37) 34 g/dL (31-37) Red Cell Distribution Width 14.7 % (11.5-14.5) 14.8 % (11.5-14.5) Platelet Count 251 x10^3/uL (140-400) 226 x10^3/uL (140-400) Neutrophils (%) (Auto) 81 % (31-73) 86 % (31-73) Lymphocytes (%) (Auto) 11 % (24-48) 8 % (24-48) Monocytes (%) (Auto) 7 % (0-9) 6 % (0-9) Eosinophils (%) (Auto) 0 % (0-3) 0 % (0-3) Basophils (%) (Auto) 0 % (0-3) 0 % (0-3) Neutrophils # (Auto) 7.5 x10^3/uL (1.8-7.7) 7.7 x10^3/uL (1.8-7.7) Lymphocytes # (Auto) 1.0 x10^3/uL (1.0-4.8) 0.7 x10^3/uL (1.0-4.8) Monocytes # (Auto) 0.7 x10^3/uL (0.0-1.1) 0.6 x10^3/uL (0.0-1.1) Eosinophils # (Auto) 0.0 x10^3/uL (0.0-0.7) 0.0 x10^3/uL (0.0-0.7) Basophils # (Auto) 0.0 x10^3/uL (0.0-0.2) 0.0 x10^3/uL (0.0-0.2) Sodium Level 135 mmol/L (136-145) 136 mmol/L (136-145) Potassium Level 4.3 mmol/L (3.5-5.1) 4.6 mmol/L (3.5-5.1) Chloride Level 99 mmol/L (98-107) 97 mmol/L (98-107) Carbon Dioxide Level 24 mmol/L (21-32) 30 mmol/L (21-32) Anion Gap 12 (6-14) 9 (6-14) Blood Urea Nitrogen 16 mg/dL (8-26) 17 mg/dL (8-26) Creatinine 1.1 mg/dL (0.7-1.3) 1.3 mg/dL (0.7-1.3) Estimated GFR (Cockcroft-Gault) 76.6 63.2 BUN/Creatinine Ratio 15 (6-20) Glucose Level 109 mg/dL (70-99) 90 mg/dL (70-99) Calcium Level 8.6 mg/dL (8.5-10.1) 8.0 mg/dL (8.5-10.1) Magnesium Level 1.7 mg/dL (1.8-2.4) 1.8 mg/dL (1.8-2.4) Total Bilirubin 1.0 mg/dL (0.2-1.0) Aspartate Amino Transf (AST/SGOT) 37 U/L (15-37) Alanine Aminotransferase (ALT/SGPT) 49 U/L (16-63) Alkaline Phosphatase 109 U/L (46-116) Creatine Kinase 187 U/L (39-308) Troponin I Quantitative 0.049 ng/mL (0.000-0.055) 0.096 ng/mL (0.000-0.055) 0.072 ng/mL (0.000-0.055) FP-Mbq-H-Type Natriuretic Peptide 7641 pg/mL (0-124) Total Protein 6.9 g/dL (6.4-8.2) Albumin 3.2 g/dL (3.4-5.0) Albumin/Globulin Ratio 0.9 (1.0-1.7) Thyroid Stimulating Hormone (TSH) 3.546 uIU/mL (0.358-3.74) Ferritin 277 ng/mL (26-388) C-Reactive Protein, Quantitative 47.3 mg/L (0-3.3) Triglycerides Level 58 mg/dL (0-150) Cholesterol Level 95 mg/dL (0-200) LDL Cholesterol, Calculated 58 mg/dL (0-100) VLDL Cholesterol, Calculated 12 mg/dL (0-40) Non-HDL Cholesterol Calculated 70 mg/dL (0-129) HDL Cholesterol 25 mg/dL (40-60) Cholesterol/HDL Ratio 3.8 Physical Exam HEENT: Neck Supple W Full Motion Chest: Symmetric LUNGS: Other (diminished) Heart: RRR (ST) Abdomen: Soft N/T, Other (obese) Extremities: No Calf Tenderness, Other (bilateral LE pitting edema) Neurology: alert, oriented, follow commands Assessment Assessment 1. Covid-19/fever: unvaccinated 2. Acute CHF with possible systolic/diastolic CHF 3. Pericardial effusion: no hemodynamic compromise. likely from covid-19 and substance abuse 4. Substance abuse: UDS+ for meth, marijuana and benzodiazepine 5. Sinus tachycardia 6. Tobaccoism 7. Chest pain: Myocarditis related covid-19 could not be ruled out. No PE per CTA 8. HTN: labile 9. Morbid obesity Recommendations 1. Lasix therapy 2. Covid-19 treatment per pulmonary 3. ASA. Await TTE and will consider adding BB. Continue norvasc. Lasix therapy 4. Limited TTE today and will note effusion and any semblance of vegetation 5. Lifestyle modification abstinence to illicit drugs and smoking Justicifation of Admission Dx: Justifications for Admission: Justification of Admission Dx: Yes ALMA DELIA YIP MD 06/08/21 0319: REMIGIO FAUST [facility] Jun 04, 2021 13:40 ALMA DELIA YIP MD Jun 08, 2021 03:19
--- NOTE | 2021-06-04 15:31 | CARD ---
MR#: [id number] Date of Study: 06/04/2021 Ordering Physician: REMIGIO FAUST, Referring Physician: REMIGIO FAUST Tech: Aditya Geronimo RUST APPROVED REPORT EXAM: Two-dimensional and M-mode echocardiogram with Doppler and color Doppler. Other Information Quality : LimitedHR: 121bpm Rhythm : Tachycardia INDICATION Pericardial Effusion Covid Positive patient. RISK FACTORS Obesity Smoking 2D DIMENSIONS Left Atrium(2D)5.6 (1.6-4.0cm)IVSd1.3 (0.7-1.1cm) Aortic Root(2D)3.7 (2.0-3.7cm)LVDd6.4 (3.9-5.9cm) PWd1.3 (0.7-1.1cm)LVDs5.9 (2.5-4.0cm) FS (%) 6.7 %SV30.3 ml LVEF(%)14.7 (>50%) Aortic Valve AoV Peak Niko.103.0cm/sAoV VTI11.7cm AO Peak GR.4.2mmHgAO Mean GR.3mmHg Mitral Valve MV E Peak Gr.5mmHgMV E Mean Gr.3mmHg Tricuspid Valve TR P. Jsmsdnpo960cg/sTR Peak Gr.41mmHg LEFT VENTRICLE The Left Ventricle is moderately dilated. There is normal left ventricular wall thickness. The left v entricular systolic function is severely impaired. The ejection fraction is 15%. There is global hypo kinesis of the left ventricle. No left ventricle thrombus noted on this study. There is no ventricula r septal defect visualized. There is no left ventricular aneurysm. There is no mass noted in the left ventricle. RIGHT VENTRICLE The right ventricle is normal size. There is normal right ventricular wall thickness. The right ventr icular systolic function is normal. ATRIA The left atrium is mildly dilated. The right atrium is moderately dilated. The interatrial septum is intact with no evidence for an atrial septal defect or patent foramen ovale as noted on 2-D or Dopple r imaging. AORTIC VALVE The aortic valve is normal in structure and function. Doppler and Color Flow revealed no significant aortic regurgitation. There is no significant aortic valvular stenosis. There is no aortic valvular v egetation. MITRAL VALVE The mitral valve is normal in structure and function. There is no evidence of mitral valve prolapse. There is no mitral valve stenosis. Doppler and Color-flow revealed trace to mild mitral regurgitation . TRICUSPID VALVE The tricuspid valve is normal in structure and function. Doppler and Color Flow revealed mild tricusp id regurgitation. There is no tricuspid valve prolapse or vegetation. There is no tricuspid valve terernce nosis. PULMONIC VALVE The pulmonary valve is normal in structure and function. Doppler and Color Flow revealed no pulmonic valvular regurgitation. There is no pulmonic valvular stenosis. GREAT VESSELS The aortic root is normal in size. The ascending aorta is normal in size. The pulmonary artery is nor mal. The IVC is dilated. IVC Doppler evaluation reveals systolic blunting. PERICARDIAL EFFUSION There is no pleural effusion. There is small pericardial effusion. Critical Notification Critical Value: No <Conclusion> The left ventricular systolic function is severely impaired. The ejection fraction is 15%. Trace to mild mitral regurgitation. Mild tricuspid regurgitation. There is small pericardial effusion. Signed by : Tye Shelby, Electronically Approved : 06/04/2021 15:30:59
[2021-06-04] MEDS ORDERED: MAGNESIUM SULFATE 2GM 50 ML IV ONE (16:00)
[2021-06-04] MEDS: ENOXAPARIN 40 MG/0.4 ML SYRINGE. SQ SCH ×2 (17:23→21:18)
[2021-06-04] MEDS: LISINOPRIL 5 MG TABLET. PO SCH (17:23)
[2021-06-04] MEDS: CARVEDILOL 6.25 MG TABLET. PO SCH (17:23)
[2021-06-04] MEDS ORDERED: REMDESIVIR 100mg in NORMAL SALINE 250ML X 4 DAYS IV SCH (19:00)
[2021-06-05 03:00] VITALS: BP 126/77
[2021-06-05 07:00] VITALS: BP 135/78
[2021-06-05] MEDS: CARVEDILOL 6.25 MG TABLET. PO SCH (10:02)
[2021-06-05] MEDS: LISINOPRIL 5 MG TABLET. PO SCH (10:02)
[2021-06-05] MEDS: MULTIVITAMIN with MINERAL TABLET. PO SCH (10:03)
[2021-06-05] MEDS: ENOXAPARIN 40 MG/0.4 ML SYRINGE. SQ SCH (10:03)
[2021-06-05] MEDS: ASPIRIN ENTERIC COATED 81 MG TABLET.DR. PO SCH (10:03)
[2021-06-05] MEDS: FUROSEMIDE 40 MG/4 ML VIAL. IVP SCH (10:04)
[2021-06-05] MEDS: methylPREDNISolone SOD SUCC PF 40 MG/ML VIAL. IV SCH (10:04)
[2021-06-05 11:26] VITALS: BP 144/82
--- NOTE | 2021-06-05 12:07 | PDOC ---
[facility] PROGRESS NOTE Date of Service DOS: DATE: 06/05/21 TIME: 12:06 Chief Complaint Chief Complaint Respiratory failure secondary to COVID-19 Methamphetamine abuse with incidental finding of a pericardial effusion Acute on chronic systolic, diastolic heart failure Hyponatremia History of Present Illness History of Present Illness 06/05: Mr. Wallace was seen and evaluated this morning in his room. He was lying on his right side and resting upon interview. He states that his chest pain is no longer present and at this time, he just feels tired. Mr. Wallace is currently on the COVID-19 Protocol (Remdesivir Day 2, Multivitamins, Lasix, Aspirin, Methyl prednisolone, Guaifenesin/Codeine, Piperacillin/Tazobactam). His chart was reviewed and I discussed his disposition with his nurse. Vitals/I&O Vitals/I&O: Vital Signs Date Time Temp Pulse Resp B/P (MAP) Pulse Ox O2 Delivery O2 Flow Rate FiO2 06/05/21 11:26 98.0 113 20 144/82 (102) 97 Nasal Cannula 2.0 98.0 I & O 06/04/21 06/04/21 06/05/21 15:00 23:00 07:00 Intake Total 600 ml Output Total 4000 ml 2475 ml 1300 ml Balance -4000 ml -1875 ml -1300 ml Physical Exam General: Alert, Oriented X3, Cooperative, mild distress Heart: Regular rate (SR/ST), No murmurs, Other (S3) Abdomen: Normal bowel sounds, Other (obese) Extremities: No clubbing, Other (2+ bilateral LE pitting edema) Skin: No rashes, Other (left arm needle tracks; scattered generalized insect bites) Assessment and Plan Assessmemt and Plan Problems Medical Problems: (1) COVID-19 Status: Acute (2) Pericardial effusion Status: Acute Comment Review of Relevant I have reviewed the following items ashley (where applicable) has been applied. Medications: Current Medications Medications (Trade) Dose Ordered Sig/Lisset Route PRN Reason Start Time Stop Time Status Last Admin Dose Admin Remdesivir 100 mg/ Sodium Chloride 230 ml @ 460 mls/hr Q24H IV 06/04/21 19:00 06/07/21 19:29 06/04/21 17:24 Carvedilol (Coreg) 6.25 mg BIDWMEALS PO 06/04/21 17:00 06/05/21 10:02 Magnesium Sulfate 50 ml @ 25 mls/hr 1X ONCE IV 06/04/21 16:00 06/04/21 17:59 DC 06/04/21 17:24 Lisinopril (Prinivil) 5 mg DAILY PO 06/04/21 16:00 06/05/21 10:02 Justifications for Admission Other Justification PARI CARDONA MD Jun 05, 2021 12:07
[2021-06-05] MEDS ORDERED: PRED-220 PO (12:17)
[2021-06-05] MEDS ORDERED: AMLO-187 PO (12:17)
[2021-06-05] MEDS ORDERED: CARV6.2511 PO (12:17)
--- NOTE | 2021-06-05 12:20 | PDOC3 ---
Discharge Summary Visit Information Date of Admission: Jun 03, 2021 Date of Discharge: Jun 05, 2021 Final Diagnosis acute hypoxic Respiratory failure secondary to COVID-19 Methamphetamine abuse with incidental finding of a pericardial effusion THC abuse, benzo abuse Acute on chronic systolic, diastolic heart failure Hyponatremia Medical Problems: (1) COVID-19 Status: Acute (2) Pericardial effusion Status: Acute Brief Hospital Course Allergies Allergies Coded Allergies Type Severity Reaction Last Updated Verified No Known Drug Allergies 06/03/21 No Vital Signs Vital Signs Date Time Temp Pulse Resp B/P (MAP) Pulse Ox O2 Delivery O2 Flow Rate FiO2 06/05/21 11:26 98.0 113 20 144/82 (102) 97 Nasal Cannula 2.0 98.0 Lab Results Laboratory Tests Test 06/03/21 12:20 06/03/21 13:38 06/03/21 16:50 06/04/21 04:00 Urine Collection Type Unknown Urine Color Abril Urine Clarity Clear Urine pH 6.5 (<5.0-8.0) Urine Specific Ferris 1.025 (1.000-1.030) Urine Protein 100 mg/dL (NEG-TRACE) Urine Glucose (UA) Negative mg/dL (NEG) Urine Ketones (Stick) Negative mg/dL (NEG) Urine Blood Negative (NEG) Urine Nitrite Negative (NEG) Urine Bilirubin Negative (NEG) Urine Urobilinogen Dipstick 4.0 mg/dL (0.2 mg/dL) Urine Leukocyte Esterase Negative (NEG) Urine RBC 0 /HPF (0-2) Urine WBC 1-4 /HPF (0-4) Urine Squamous Epithelial Cells Few /LPF Urine Bacteria 0 /HPF (0-FEW) Urine Mucus Slight /LPF Urine Opiates Screen Neg (NEG) Urine Methadone Screen Neg (NEG) Urine Barbiturates Neg (NEG) Urine Phencyclidine Screen Neg (NEG) Urine Amphetamine/Methamphetamine Pos (NEG) Urine Benzodiazepines Screen Pos (NEG) Urine Cocaine Screen Neg (NEG) Urine Cannabinoids Screen Pos (NEG) Urine Ethyl Alcohol Neg (NEG) White Blood Count 9.2 x10^3/uL (4.0-11.0) Red Blood Count 4.74 x10^6/uL (4.30-5.70) Hemoglobin 14.5 g/dL (13.0-17.5) Hematocrit 43.0 % (39.0-53.0) Mean Corpuscular Volume 91 fL (79-100) Mean Corpuscular Hemoglobin 31 pg (25-35) Mean Corpuscular Hemoglobin Concent 34 g/dL (31-37) Red Cell Distribution Width 14.7 % (11.5-14.5) Platelet Count 251 x10^3/uL (140-400) Neutrophils (%) (Auto) 81 % (31-73) Lymphocytes (%) (Auto) 11 % (24-48) Monocytes (%) (Auto) 7 % (0-9) Eosinophils (%) (Auto) 0 % (0-3) Basophils (%) (Auto) 0 % (0-3) Neutrophils # (Auto) 7.5 x10^3/uL (1.8-7.7) Lymphocytes # (Auto) 1.0 x10^3/uL (1.0-4.8) Monocytes # (Auto) 0.7 x10^3/uL (0.0-1.1) Eosinophils # (Auto) 0.0 x10^3/uL (0.0-0.7) Basophils # (Auto) 0.0 x10^3/uL (0.0-0.2) Sodium Level 135 mmol/L (136-145) 136 mmol/L (136-145) Potassium Level 4.3 mmol/L (3.5-5.1) 4.6 mmol/L (3.5-5.1) Chloride Level 99 mmol/L (98-107) 97 mmol/L (98-107) Carbon Dioxide Level 24 mmol/L (21-32) 30 mmol/L (21-32) Anion Gap 12 (6-14) 9 (6-14) Blood Urea Nitrogen 16 mg/dL (8-26) 17 mg/dL (8-26) Creatinine 1.1 mg/dL (0.7-1.3) 1.3 mg/dL (0.7-1.3) Estimated GFR (Cockcroft-Gault) 76.6 63.2 BUN/Creatinine Ratio 15 (6-20) Glucose Level 109 mg/dL (70-99) 90 mg/dL (70-99) Calcium Level 8.6 mg/dL (8.5-10.1) 8.0 mg/dL (8.5-10.1) Magnesium Level 1.7 mg/dL (1.8-2.4) 1.8 mg/dL (1.8-2.4) Total Bilirubin 1.0 mg/dL (0.2-1.0) Aspartate Amino Transf (AST/SGOT) 37 U/L (15-37) Alanine Aminotransferase (ALT/SGPT) 49 U/L (16-63) Alkaline Phosphatase 109 U/L (46-116) Creatine Kinase 187 U/L (39-308) Troponin I Quantitative 0.049 ng/mL (0.000-0.055) 0.096 ng/mL (0.000-0.055) 0.072 ng/mL (0.000-0.055) HG-Jtc-K-Type Natriuretic Peptide 7641 pg/mL (0-124) Total Protein 6.9 g/dL (6.4-8.2) Albumin 3.2 g/dL (3.4-5.0) Albumin/Globulin Ratio 0.9 (1.0-1.7) Thyroid Stimulating Hormone (TSH) 3.546 uIU/mL (0.358-3.74) Ferritin 277 ng/mL (26-388) C-Reactive Protein, Quantitative 47.3 mg/L (0-3.3) Triglycerides Level 58 mg/dL (0-150) Cholesterol Level 95 mg/dL (0-200) LDL Cholesterol, Calculated 58 mg/dL (0-100) VLDL Cholesterol, Calculated 12 mg/dL (0-40) Non-HDL Cholesterol Calculated 70 mg/dL (0-129) HDL Cholesterol 25 mg/dL (40-60) Cholesterol/HDL Ratio 3.8 Test 06/04/21 05:00 White Blood Count 8.9 x10^3/uL (4.0-11.0) Red Blood Count 4.78 x10^6/uL (4.30-5.70) Hemoglobin 14.6 g/dL (13.0-17.5) Hematocrit 43.1 % (39.0-53.0) Mean Corpuscular Volume 90 fL (79-100) Mean Corpuscular Hemoglobin 31 pg (25-35) Mean Corpuscular Hemoglobin Concent 34 g/dL (31-37) Red Cell Distribution Width 14.8 % (11.5-14.5) Platelet Count 226 x10^3/uL (140-400) Neutrophils (%) (Auto) 86 % (31-73) Lymphocytes (%) (Auto) 8 % (24-48) Monocytes (%) (Auto) 6 % (0-9) Eosinophils (%) (Auto) 0 % (0-3) Basophils (%) (Auto) 0 % (0-3) Neutrophils # (Auto) 7.7 x10^3/uL (1.8-7.7) Lymphocytes # (Auto) 0.7 x10^3/uL (1.0-4.8) Monocytes # (Auto) 0.6 x10^3/uL (0.0-1.1) Eosinophils # (Auto) 0.0 x10^3/uL (0.0-0.7) Basophils # (Auto) 0.0 x10^3/uL (0.0-0.2) Brief Hospital Course Mr. Wallace is a 36 old admit confused, weakness, hypoxia, COVID, substance absue started on COVID-19 Protocol (Remdesivir , Multivitamins, Lasix, Aspirin, Methylprednisolone, Guaifenesin/Codeine Discharge Information Condition at Discharge: Improved Follow Up: Weeks Disposition/Orders: D/C to Home Scheduled Amlodipine Besylate (Amlodipine Besylate) 10 Mg Tablet, 10 MG PO DAILY for hypertension, #30 Prescribed by: PARI CARDONA on 06/05/211216 Carvedilol (Carvedilol ) 6.25 Mg Tablet, 6.25 MG PO BIDWMEALS for hypertension, #60 Prescribed by: PARI CARDONA on 06/05/211216 Prednisone (Prednisone ) 10 Mg Tablet, 10 MG PO UD for COVID, #30 Ref 0 Take 5 tablets by mouth daily for 2 days, then take 4 tablets by mouth daily for 2 days, then take 3 tablets by mouth daily for 2 days, then take 2 tablets by mouth daily for 2 days, then take 1 tablets by mouth daily for 2 days, then stop. Prescribed by: PARI CARDONA on 06/05/211216 Patient Instructions Patient Instructions pt seen face to face plan discussed, sobriety encouraged, benefits discussed, he has plan for avoidance time 41 minutes Justicifation of Admission Dx: Justifications for Admission: Justification of Admission Dx: Yes PARI CARDONA MD Jun 05, 2021 12:20
--- NOTE | 2021-06-05 12:30 | PDOC ---
PROGRESS NOTES Date of Service: DATE: 06/05/21 TIME: 12:28 Subjective Subjective c/o generalized fatigue, denied any chest pain Objective Objective Vital Signs Date Time Temp Pulse Resp B/P (MAP) Pulse Ox O2 Delivery O2 Flow Rate FiO2 06/05/21 11:26 98.0 113 20 144/82 (102) 97 Nasal Cannula 2.0 98.0 Intake and Output 06/05/21 07:00 Intake Total 600 ml Output Total 7775 ml Balance -7175 ml Intake Oral 600 ml Output Urine Total 7775 ml Physical Exam Abdomen: Normal bowel sounds, Other (obese) Heart: Regular rate (SR/ST), No murmurs, Other (S3) Extremities: No clubbing, Other (2+ bilateral LE pitting edema) General: Alert, Oriented X3 HEENT: Atraumatic, Mucous membr. moist/pink Lungs: Other (diminished with basilar crackles) Neuro: Normal speech Skin: No rashes, Other (left arm needle tracks; scattered generalized insect bites) Assessment Assessment 1. Covid-19/fever: unvaccinated: Treat per primary team. 2. Acute on chronic systolic heart failure. 2D echo showed LVEF 15%. Better compensated after diuresis with Lasix. Plan ischemic evaluation as outpatient. 3. Pericardial effusion: Small pericardial effusion on 2D echo without any hemodynamic compromise 4. Substance abuse: UDS+ for meth, marijuana and benzodiazepine 5. Sinus tachycardia 6. Tobaccoism 7. Chest pain: Troponin level slightly elevated, could be secondary to demand ischemia or myocarditis in the setting of Covid infection. Plan ischemic evaluation as an outpatient as stated above. 8. HTN: Well controlled 9. Morbid obesity Plan Plan of Care Problems Medical Problems: (1) COVID-19 Status: Acute (2) Pericardial effusion Status: Acute Comment Review of Relevant I have reviewed the following items ashley (where applicable) has been applied. Medications Current Medications Carvedilol (Coreg) 6.25 mg BIDWMEALS PO Last administered on 06/05/21at 10:02; Start 06/04/21 at 17:00 Lisinopril (Prinivil) 5 mg DAILY PO Last administered on 06/05/21at 10:02; Start 06/04/21 at 16:00 Magnesium Sulfate 50 ml @ 25 mls/hr 1X ONCE IV Last administered on 06/04/21at 17:24; Start 06/04/21 at 16:00; Stop 06/04/21 at 17:59; Status DC Remdesivir 100 mg/ Sodium Chloride 230 ml @ 460 mls/hr Q24H IV Last administered on 06/04/21at 17:24; Start 06/04/21 at 19:00; Stop 06/07/21 at 19:29 Vitals/I & O Vital Sign - Last 24 Hours 06/04/21 06/04/21 06/04/21 06/04/21 14:59 17:23 17:23 19:00 Temp 97.6 98.2 97.6 98.2 Pulse 117 117 117 101 Resp 24 20 B/P (MAP) 143/97 (112) 143/97 143/97 136/72 (93) Pulse Ox 96 98 O2 Delivery Nasal Cannula Room Air O2 Flow Rate 2.0 2.0 06/04/21 06/04/21 06/05/21 06/05/21 19:34 23:00 03:00 07:00 Temp 97.7 97.9 98.0 97.7 97.9 98.0 Pulse 103 113 113 Resp 20 20 20 B/P (MAP) 118/68 (85) 126/77 (93) 135/78 (97) Pulse Ox 98 96 96 O2 Delivery Nasal Cannula Nasal Cannula Nasal Cannula Nasal Cannula O2 Flow Rate 4.0 2.0 2.0 2.0 06/05/21 06/05/21 06/05/21 06/05/21 08:00 10:02 10:02 10:03 Pulse 113 113 113 B/P (MAP) 135/78 135/78 135/78 O2 Delivery Nasal Cannula O2 Flow Rate 4.0 06/05/21 11:26 Temp 98.0 98.0 Pulse 113 Resp 20 B/P (MAP) 144/82 (102) Pulse Ox 97 O2 Delivery Nasal Cannula O2 Flow Rate 2.0 Intake and Output 06/04/21 06/04/21 06/05/21 15:00 23:00 07:00 Intake Total 600 ml Output Total 4000 ml 2475 ml 1300 ml Balance -4000 ml -1875 ml -1300 ml BUBBA CARRASCO MD Jun 05, 2021 12:30
--- NOTE | 2021-06-05 15:45 | NUR ---
Discharge Note: GLENROY BERUMEN Discharge instructions and discharge home medications reviewed with Patient and a copy given. All questions have been answered and understanding verbalized. The following instructions and handouts were given: carvedilol, prednisone, amlodipine, heart failure, COVID discharge instructions. Patient discharged to home with self care via ambulatory.
[2021-06-05 15:55] VITALS: BP 121/76
== END 2021-06-05 15:45 | disposition home or self-care (01) | DRG 177 ==
LOC: ER 11:31 → ED HOLD 14:43 → 6 SOUTH 21:51
PROVIDERS: ADMIT Internal Medicine; ATTEND Internal Medicine
PROC: XW033E5 Introduction of Remdesivir Anti-infective into Peripheral Vein, Percutaneous Approach, New Technology Group 5 (ICD-10-PCS; principal; 2021-06-03)
DX: U07.1 COVID-19 (principal); J96.21 Acute and chronic respiratory failure with hypoxia; I50.43 Acute on chronic combined systolic (congestive) and diastolic (congestive) heart failure; E87.1 Hypo-osmolality and hyponatremia; I31.3 Pericardial effusion (noninflammatory); E66.01 Morbid (severe) obesity due to excess calories; F12.10 Cannabis abuse, uncomplicated; F13.10 Sedative, hypnotic or anxiolytic abuse, uncomplicated; F15.10 Other stimulant abuse, uncomplicated; F17.210 Nicotine dependence, cigarettes, uncomplicated; I11.0 Hypertensive heart disease with heart failure; Z82.49 Family history of ischemic heart disease and other diseases of the circulatory system; Z83.3 Family history of diabetes mellitus; Z68.39 Body mass index [BMI] 39.0-39.9, adult
CPT/HCPCS: 36415; 71045; 71275; 80048; 80053; 80061; 80307; 81001; 82550; 82728; 83735; 83880; 84443; 84484; 85025; 86140; 87426; 87804; 93005; 93308; 94618; 96361; 96374; 96375; J1650; J1885; J1940; J2543; J2920; J3475; J3490; J7030; J7050; J7060; 99285-25; G0378

== ENCOUNTER 2021-06-10 20:08 | Inpatient (IN) | payer MEDICAID ==
[~2021-06-10] VITALS: Ht 175.3 cm; Wt 120.1 kg
[~2021-06-10 20:08] MED LIST: AMLO-187 PO; CARV6.2511 PO; PRED-220 PO
[2021-06-10] MEDS ORDERED: NITROGLYCERIN SUBLINGUAL 0.4 MG BOTTLE OF 25. SL PRN ×2 (21:30→22:45)
[2021-06-10] MEDS ORDERED: MORPHINE SULFATE 4 MG/ML INJ. IV/SQ PRN (21:30)
--- NOTE | 2021-06-10 21:30 | PHYS DOC ---
Past Medical History Past Surgical History: No Surgical History (VICKIE CURRIE BANDOLEER PACKER) Smoking Status: Current Every Day Smoker Alcohol Use: None Drug Use: Amphetamine (VICKIE CURRIE BANDOLEER PACKER) General Adult EDM: Chief Complaint: CHEST PAIN HPI: HPI: Patient is a 36 year old male who presents to the ED today complaining of 7 out of 10 substernal chest pain, symptoms began this evening around 5 PM. Patient states he was sleeping when the pain woke him up. Patient describes the pain as sharp and constant. Denies anything specifically exacerbating or relieving the pain. Patient is also complaining of cough and shortness of breath that have been going on since 06/03/2021. He states he was diagnosed with COVID-19 at the beginning of the month, he was hospitalized until Monday when he was discharged. His chart showed he had pericardial effusion as well. He states right now he is on a water pill. (VICKIE CURRIE BANDOLEER PACKER) Review of Systems: Review of Systems: Constitutional: Denies fever or chills. [] Eyes: Denies change in visual acuity. [] HENT: Denies nasal congestion or sore throat. [] Respiratory: Reports cough and shortness of breath. [] Cardiovascular: Reports chest pain GI: Denies abdominal pain, nausea, vomiting, bloody stools or diarrhea. [] : Denies dysuria. [] Musculoskeletal: Denies back pain or joint pain. [] Integument: Denies rash. [] Neurologic: Denies headache, focal weakness or sensory changes. [] Psychiatric: Denies depression or anxiety. [] (VICKIE CURRIE BANDOLEER PACKER) Heart Score: C/O Chest Pain: Yes HEART Score for Chest Pain: HEART Score for Chest Pain Response (Comments) Value History Slighlty/Non-Suspicious 0 ECG Normal 0 Age < 45 0 Risk Factors 1 or 2 Risk Factors 1 Troponin >1-<3x Normal Limit 1 Total 2 Risk Factors: Risk Factors: DM, Current or recent (<one month) smoker, HTN, HLP, family history of CAD, obesity. Risk Scores: Score 0 - 3: 2.5% MACE over next 6 weeks - Discharge Home Score 4 - 6: 20.3% MACE over next 6 weeks - Admit for Clinical Observation Score 7 - 10: 72.7% MACE over next 6 weeks - Early Invasive Strategies (VICKIE CURRIE ) Current Medications: Current Medications Medications (Trade) Dose Ordered Sig/Lisset Start Time Stop Time Status Last Admin Dose Admin Aspirin (Tommy Aspirin) 325 mg 1X ONCE 06/10/21 21:30 06/10/21 21:31 UNV Morphine Sulfate (Morphine Sulfate) 4 mg PRN Q15MIN PRN 06/10/21 21:30 06/11/21 21:29 UNV Nitroglycerin (Nitrostat) 0.4 mg PRN Q5MIN PRN 06/10/21 21:30 06/11/21 21:29 UNV Sodium Chloride 1,000 ml @ 1,000 mls/hr 1X ONCE 06/10/21 21:30 06/10/21 22:29 UNV (VICKIE CURRIE BANDOLE[employer] PACKER) Allergies: Allergies: Allergies Coded Allergies Type Severity Reaction Last Updated Verified No Known Drug Allergies 06/03/21 No (VICKIE CURRIE BANDOLEER PACKER) Physical Exam: PE: Constitutional: Well developed, well nourished, no acute distress, non-toxic appearance. [] HENT: Normocephalic, atraumatic, bilateral external ears normal, oropharynx moist, no oral exudates, nose normal. [] Eyes: PERRLA, EOMI, conjunctiva normal, no discharge. [] Neck: Normal range of motion, no tenderness, supple, no stridor. [] Cardiovascular: Tachycardic Lungs & Thorax: Bilateral breath sounds clear to auscultation [] Abdomen: Bowel sounds normal, soft, no tenderness, no masses, no pulsatile masses. [] Skin: Warm, dry, no erythema, no rash. [] Back: No tenderness, no CVA tenderness. [] Extremities: No tenderness, no cyanosis, no clubbing, ROM intact, no edema. [] Neurologic: Alert and oriented X 3, normal motor function, normal sensory function, no focal deficits noted. [] Psychologic: Affect normal, judgement normal, mood normal. [] (VICKIE CURRIE BANDOLEER PACKER) EKG: EK [interpreted by Dr. Taveras sinus tachycardia heart rate 124 no STEMI] (VICKIE CURRIE BANDOLEER PACKER) Radiology/Procedures: Radiology/Procedures: []PROCEDURE: PORTABLE CHEST 1V XR CHEST 1V History: Reason: chest pain / Spl. Instructions: / History: Comparison: June 03, 2021 Findings: Moderate interstitial and alveolar opacities. No pleural effusion. No pneumothorax. Enlarged cardiac size. Impression: 1. Moderate interstitial and alveolar opacities, may represent pulmonary edema or infection. 2. Enlarged cardiac size. Overall decreased compared to prior. Electronically signed by: Jean Polanco DO (06/10/2021 10:18 PM) [facility] DICTATED and SIGNED BY: JEAN POLANCO DO DATE: 06/10/21 [id number] (VICKIE CURRIE APRN) Course & Med Decision Making: Course & Med Decision Making Pertinent Labs and Imaging studies reviewed. (See chart for details) This is a 36-year-old male patient presenting to the ED today complaining of chest pain that has been going on since 5 PM this evening. Also complaining of cough and shortness of breath that he has had since June 03, 2021. He was hospitalized on that day for COVID-19 and pericardial effusion. He was put on furosemide. Arrives in the ED with heart rate in the 120s. Denies any use of methamphetamine since he was discharged. Temperature on arrival to the ED was 98.0, blood pressure 122/72, O2 sats 94% on room air. EKG noted for sinus tachycardia, CMP with magnesium of 1.6. IV magnesium ordered. CBC no acute findings, troponin 0.405, 2228 spoke with he requested we do not give patient any blood thinners. BNP 4179, given 1 dose of furosemide. Spoke with Dr. Ray who accepted patient for admission (VICKIE CURRIE BANDOLEER PACKER) Course & Med Decision Making I have reviewed and was available for consultation in the emergency department for this patient that was seen by midlevel provider. Agree with plan. Camden Taveras DO (CAMDEN TAVERAS DO) Edison Disclaimer: Edison Disclaimer: This electronic medical record was generated, in whole or in part, using a voice recognition dictation system. (VICKIE CURRIE APRN) Departure Departure Impression: Primary Impression: Chest pain Qualified Codes: R07.9 - Chest pain, unspecified Additional Impressions: NSTEMI (non-ST elevated myocardial infarction) Tachycardia CHF exacerbation Qualified Codes: I50.9 - Heart failure, unspecified Disposition: ADMITTED INPATIENT Condition: STABLE Referrals: NO PCP (PCP) VICKIE CURRIE APRN Jun 10, 2021 21:30 CAMDEN TAVERAS DO Jun 11, 2021 00:33
[2021-06-10 21:38] LABS: BASO % 0 % (0-3); EOS % 0 % (0-3); HEMOGLOBIN 14.4 g/dL (13.0-17.5); LYMPH # 1.4 x10^3/uL (1.0-4.8); LYMPH % 21 % (24-48); MEAN CORPUSCULAR HEMOGLOBIN 30 pg (25-35); MEAN CORPUSCULAR HGB CONC 34 g/dL (31-37); MEAN CORPUSCULAR VOLUME 88 fL (79-100); MONO # 0.5 x10^3/uL (0.0-1.1); MONO % 7 % (0-9); NEUT # 4.8 x10^3/uL (1.8-7.7); NEUT % 71 % (31-73); PLATELET COUNT 297 x10^3/uL (140-400); RED CELL DISTRIBUTION WIDTH 14.5 % (11.5-14.5); WHITE BLOOD COUNT 6.7 x10^3/uL (4.0-11.0)
[2021-06-10 21:48] LABS: CREATININE 1.2 mg/dL (0.7-1.3); GFR 69.3; POTASSIUM 4.2 mmol/L (3.5-5.1)
[2021-06-10 21:55] LABS: ALBUMIN 2.6 g/dL (3.4-5.0); ALBUMIN/GLOBULIN RATIO 0.7 (1.0-1.7); MAGNESIUM 1.6 mg/dL (1.8-2.4); TOTAL BILIRUBIN 0.8 mg/dL (0.2-1.0); TOTAL PROTEIN 6.6 g/dL (6.4-8.2)
[2021-06-10] MEDS ORDERED: ASPIRIN 325 MG TABLET PO ONE (22:00)
[2021-06-10] MEDS ORDERED: IV NORMAL SALINE 1000ML BAG 1,000 ML IV ONE (22:00)
--- NOTE | 2021-06-10 22:21 | RAD ---
XR CHEST 1V History: Reason: chest pain / Spl. Instructions: / History: Comparison: June 03, 2021 Findings: Moderate interstitial and alveolar opacities. No pleural effusion. No pneumothorax. Enlarged cardiac size. Impression: 1. Moderate interstitial and alveolar opacities, may represent pulmonary edema or infection. 2. Enlarged cardiac size. Overall decreased compared to prior. Electronically signed by: Jean Polanco DO (06/10/2021 10:18 PM) [facility]
[2021-06-10] MEDS ORDERED: ONDANSETRON PF 4 MG/2 ML VIAL. IVP PRN (22:45)
[2021-06-10] MEDS ORDERED: MORPHINE SULFATE 4 MG/ML INJ. IVP PRN (22:45)
[2021-06-10] MEDS ORDERED: ACETAMINOPHEN 325 MG TABLET. PO PRN (22:45)
[2021-06-10] MEDS ORDERED: FUROSEMIDE 40 MG/4 ML VIAL. IVP ONE ×2 (23:00)
[2021-06-11] VITALS (7 sets, daily range): BP systolic 90–146; BP diastolic 53–81
[2021-06-11 00:06] LABS: BILIRUBIN,URINE NEGATIVE (NEG); CLARITY,URINE CLEAR; COLOR,URINE AMBER; NITRITE,URINE NEGATIVE (NEG); PH,URINE 5.5 (<5.0-8.0); PROTEIN,URINE 30 mg/dL (NEG-TRACE)
[2021-06-11 00:12] LABS: BARBITURATES NEG (NEG); BENZODIAZEPINES POS (NEG); CANNABINOIDS POS (NEG); COCAINE NEG (NEG); METHADONE NEG (NEG); OPIATES NEG (NEG); PHENCYCLIDINE NEG (NEG)
[2021-06-11 00:13] LABS: AMPHETAMINE/METHAMPHETAMINE POS (NEG)
[2021-06-11 00:24] LABS: BACTERIA,URINE 0 /HPF (0-FEW); RBC,URINE 0 /HPF (0-2); WBC,URINE RARE /HPF (0-4)
[2021-06-11 03:01] LABS: BASO % 0 % (0-3); EOS % 0 % (0-3); HEMATOCRIT 44.8 % (39.0-53.0); HEMOGLOBIN 15.2 g/dL (13.0-17.5); LYMPH # 1.6 x10^3/uL (1.0-4.8); LYMPH % 22 % (24-48); MEAN CORPUSCULAR HEMOGLOBIN 30 pg (25-35); MEAN CORPUSCULAR HGB CONC 34 g/dL (31-37); MEAN CORPUSCULAR VOLUME 89 fL (79-100); MONO # 0.6 x10^3/uL (0.0-1.1); MONO % 7 % (0-9); NEUT # 5.4 x10^3/uL (1.8-7.7); NEUT % 71 % (31-73); PLATELET COUNT 277 x10^3/uL (140-400); RED BLOOD COUNT 5.05 x10^6/uL (4.30-5.70); RED CELL DISTRIBUTION WIDTH 14.8 % (11.5-14.5); WHITE BLOOD COUNT 7.6 x10^3/uL (4.0-11.0)
[2021-06-11 03:41] LABS: ALBUMIN 2.8 g/dL (3.4-5.0); ALBUMIN/GLOBULIN RATIO 0.8 (1.0-1.7); CALCIUM 8.1 mg/dL (8.5-10.1); CREATININE 1.3 mg/dL (0.7-1.3); GFR 63.2; POTASSIUM 4.5 mmol/L (3.5-5.1); TOTAL PROTEIN 6.5 g/dL (6.4-8.2)
--- NOTE | 2021-06-11 08:05 | PDOC1 ---
History and Physical Date of Service: DOS: DATE: 06/11/21 TIME: 08:00 Chief Complaint: Chief Complain: Chest pain. History of Present Illness: HPI: History obtained from chart review and discussion with the ED physician 36 year old male who presents to the ED today complaining of 7 out of 10 substernal chest pain, symptoms began this evening around 5 PM. Patient states he was sleeping when the pain woke him up. Patient describes the pain as sharp and constant. Denies anything specifically exacerbating or relieving the pain. Patient is also complaining of cough and shortness of breath that have been going on since 06/03/2021. He states he was diagnosed with COVID-19 at the beginning of the month, he was hospitalized until Monday when he was discharged. His chart showed he had pericardial effusion as well. He states right now he is on a water pill. Past Medical/Surgical History: PMH/PSH: No pertinent past medical or surgical history Allergies: Allergies: Coded Allergies: No Known Drug Allergies (Unverified , 06/03/21) Family History: Family History: Reviewed with no relevant findings Social History: Social History: Smoking Status: Current Every Day Smoker Alcohol Use: None Drug Use: Amphetamine Current Medications: Current Medications Current Medications Aspirin (Tommy Aspirin) 325 mg 1X ONCE PO Last administered on 06/10/21at 23:50; Start 06/10/21 at 22:00; Stop 06/10/21 at 22:01; Status DC Nitroglycerin (Nitrostat) 0.4 mg PRN Q5MIN PRN SL CP RATING > 1/10; Start 06/10/21 at 21:30; Stop 06/10/21 at 22:49; Status DC Morphine Sulfate (Morphine Sulfate) 4 mg PRN Q15MIN PRN IV/SQ PAIN GREATER THAN 3/10 Last administered on 06/10/21at 23:51; Start 06/10/21 at 21:30; Stop 06/11/21 at 21:29 Sodium Chloride 1,000 ml @ 1,000 mls/hr 1X ONCE IV ; Start 06/10/21 at 22:00; Stop 06/10/21 at 22:21; Status DC Furosemide (Lasix) 40 mg 1X ONCE IVP ; Start 06/10/21 at 23:00; Stop 06/10/21 at 23:01; Status DC Ondansetron HCl (Zofran) 4 mg PRN Q8HRS PRN IVP NAUSEA/VOMITING 1ST CHOICE; Start 06/10/21 at 22:45; Stop 06/11/21 at 22:44 Morphine Sulfate (Morphine Sulfate) 4 mg PRN Q2HR PRN IVP SEVERE PAIN 7-10; Start 06/10/21 at 22:45; Stop 06/11/21 at 22:44 Acetaminophen (Tylenol) 650 mg PRN Q4HRS PRN PO FEVER > 100.3'F; Start 06/10/21 at 22:45; Stop 06/11/21 at 22:44 Nitroglycerin (Nitrostat) 0.4 mg PRN Q5MIN PRN SL CHEST PAIN; Start 06/10/21 at 22:45; Stop 06/11/21 at 22:44 Furosemide (Lasix) 40 mg 1X ONCE IVP Last administered on 06/10/21at 23:51; Start 06/10/21 at 23:00; Stop 06/10/21 at 23:01; Status DC Active Scripts Active Prednisone (Prednisone) 10 Mg Tablet 10 Mg PO UD Take 5 tablets by mouth daily for 2 days, then take 4 tablets by mouth daily for 2 days, then take 3 tablets by mouth daily for 2 days, then take 2 tablets by mouth daily for 2 days, then take 1 tablets by mouth daily for 2 days, then stop. Amlodipine Besylate 10 Mg Tablet 10 Mg PO DAILY Carvedilol (Carvedilol) 6.25 Mg Tablet 6.25 Mg PO BIDWMEALS ROS: Review of Systems Review of System REVIEW OF SYSTEMS: GENERAL: Denies weakness SKIN: No bruising, hair changes or rashes. EYES: No blurred, double or loss of vision. NOSE AND THROAT: No history of nosebleeds, hoarseness or sore throat. HEART: No history of palpitations, chest pain or shortness of breath on exertion. LUNGS: Denies cough, hemoptysis, wheezing or shortness of breath. GASTROINTESTINAL: Denies changes in appetite, nausea, vomiting, diarrhea or constipation. GENITOURINARY: No history of frequency, urgency, hesitancy or nocturia. NEUROLOGIC: Denies history of numbness, tingling, or tremor. PSYCHIATRIC: No history of panic, anxiety or depression. ENDOCRINE: No history of heat or cold intolerance, polyuria or polydipsia. EXTREMITIES: Denies joint pain, pain on walking or stiffness. Physical Exam: Vital Signs: Vital Signs Date Time Temp Pulse Resp B/P (MAP) Pulse Ox O2 Delivery O2 Flow Rate FiO2 06/11/21 03:00 98.7 104 22 144/68 (93) 95 Nasal Cannula 4.0 98.7 Physcial Exam: GEN: No apparent distress. Alert and oriented HEENT: Normal cephalic, atraumatic, external auditory canals are patent EYES: Extraocular muscles are intact, pupil are equally round and reactive to light and accommodation MUSCULOSKELETAL: Well developed , well nourished, good range of motion ENDOCRINE: No thyromegaly was palpated LYMPHATICS: No cervical chain or axillary nodes were noted HEMATOPOIETIC: No bruising NECK: Supple, no JVD, no thyromegaly was noted LUNGS: Clear to auscultation in all lung mohamud without rhonchi or wheezing HEART: RRR, S!, S2 present. Peripheral pulses intact, no obvious murmurs noted ABDOMEN: Soft, nontender. Positive bowel sounds, no organomegaly, normal bowel sounds EXTREMITIES: Without clubbing, cyanosis, or edema. Pedal pulses intact. Negative Homans sign NEUROLOGIC: Normal speech and tone. A&O x 3, moves all extremities, no obvious focal deficits PSYCHIATRIC: Normal affect, normal mood. Stable SKIN: No ulcerations or rashes, good skin turgor, no jaundice VASCULAR: Good capillary refill, neurovascular bundle appears to be intact Labs: Labs: Laboratory Tests Test 06/10/21 21:12 06/10/21 23:55 06/11/21 01:30 White Blood Count 6.7 x10^3/uL (4.0-11.0) 7.6 x10^3/uL (4.0-11.0) Red Blood Count 4.80 x10^6/uL (4.30-5.70) 5.05 x10^6/uL (4.30-5.70) Hemoglobin 14.4 g/dL (13.0-17.5) 15.2 g/dL (13.0-17.5) Hematocrit 42.0 % (39.0-53.0) 44.8 % (39.0-53.0) Mean Corpuscular Volume 88 fL (79-100) 89 fL (79-100) Mean Corpuscular Hemoglobin 30 pg (25-35) 30 pg (25-35) Mean Corpuscular Hemoglobin Concent 34 g/dL (31-37) 34 g/dL (31-37) Red Cell Distribution Width 14.5 % (11.5-14.5) 14.8 % (11.5-14.5) Platelet Count 297 x10^3/uL (140-400) 277 x10^3/uL (140-400) Neutrophils (%) (Auto) 71 % (31-73) 71 % (31-73) Lymphocytes (%) (Auto) 21 % (24-48) 22 % (24-48) Monocytes (%) (Auto) 7 % (0-9) 7 % (0-9) Eosinophils (%) (Auto) 0 % (0-3) 0 % (0-3) Basophils (%) (Auto) 0 % (0-3) 0 % (0-3) Neutrophils # (Auto) 4.8 x10^3/uL (1.8-7.7) 5.4 x10^3/uL (1.8-7.7) Lymphocytes # (Auto) 1.4 x10^3/uL (1.0-4.8) 1.6 x10^3/uL (1.0-4.8) Monocytes # (Auto) 0.5 x10^3/uL (0.0-1.1) 0.6 x10^3/uL (0.0-1.1) Eosinophils # (Auto) 0.0 x10^3/uL (0.0-0.7) 0.0 x10^3/uL (0.0-0.7) Basophils # (Auto) 0.0 x10^3/uL (0.0-0.2) 0.0 x10^3/uL (0.0-0.2) Sodium Level 131 mmol/L (136-145) 132 mmol/L (136-145) Potassium Level 4.2 mmol/L (3.5-5.1) 4.5 mmol/L (3.5-5.1) Chloride Level 96 mmol/L (98-107) 95 mmol/L (98-107) Carbon Dioxide Level 28 mmol/L (21-32) 30 mmol/L (21-32) Anion Gap 7 (6-14) 7 (6-14) Blood Urea Nitrogen 20 mg/dL (8-26) 20 mg/dL (8-26) Creatinine 1.2 mg/dL (0.7-1.3) 1.3 mg/dL (0.7-1.3) Estimated GFR (Cockcroft-Gault) 69.3 63.2 BUN/Creatinine Ratio 17 (6-20) 15 (6-20) Glucose Level 97 mg/dL (70-99) 90 mg/dL (70-99) Calcium Level 8.0 mg/dL (8.5-10.1) 8.1 mg/dL (8.5-10.1) Magnesium Level 1.6 mg/dL (1.8-2.4) Total Bilirubin 0.8 mg/dL (0.2-1.0) 1.0 mg/dL (0.2-1.0) Aspartate Amino Transf (AST/SGOT) 28 U/L (15-37) 31 U/L (15-37) Alanine Aminotransferase (ALT/SGPT) 28 U/L (16-63) 29 U/L (16-63) Alkaline Phosphatase 80 U/L (46-116) 85 U/L (46-116) Troponin I Quantitative 0.405 ng/mL (0.000-0.055) 0.573 ng/mL (0.000-0.055) OZ-Ijw-X-Type Natriuretic Peptide 4179 pg/mL (0-124) Total Protein 6.6 g/dL (6.4-8.2) 6.5 g/dL (6.4-8.2) Albumin 2.6 g/dL (3.4-5.0) 2.8 g/dL (3.4-5.0) Albumin/Globulin Ratio 0.7 (1.0-1.7) 0.8 (1.0-1.7) Ethyl Alcohol Level < 10 mg/dL (0-10) Urine Collection Type Unknown Urine Color Abril Urine Clarity Clear Urine pH 5.5 (<5.0-8.0) Urine Specific [place] >=1.030 (1.000-1.030) Urine Protein 30 mg/dL (NEG-TRACE) Urine Glucose (UA) Negative mg/dL (NEG) Urine Ketones (Stick) Trace mg/dL (NEG) Urine Blood Negative (NEG) Urine Nitrite Negative (NEG) Urine Bilirubin Negative (NEG) Urine Urobilinogen Dipstick 1.0 mg/dL (0.2 mg/dL) Urine Leukocyte Esterase Negative (NEG) Urine RBC 0 /HPF (0-2) Urine WBC Rare /HPF (0-4) Urine Squamous Epithelial Cells Occ /LPF Urine Bacteria 0 /HPF (0-FEW) Urine Mucus Mod /LPF Urine Opiates Screen Neg (NEG) Urine Methadone Screen Neg (NEG) Urine Barbiturates Neg (NEG) Urine Phencyclidine Screen Neg (NEG) Urine Amphetamine/Methamphetamine Pos (NEG) Urine Benzodiazepines Screen Pos (NEG) Urine Cocaine Screen Neg (NEG) Urine Cannabinoids Screen Pos (NEG) Urine Ethyl Alcohol Neg (NEG) Laboratory Tests Test 06/10/21 21:12 06/10/21 23:55 06/11/21 01:30 White Blood Count 6.7 x10^3/uL (4.0-11.0) 7.6 x10^3/uL (4.0-11.0) Red Blood Count 4.80 x10^6/uL (4.30-5.70) 5.05 x10^6/uL (4.30-5.70) Hemoglobin 14.4 g/dL (13.0-17.5) 15.2 g/dL (13.0-17.5) Hematocrit 42.0 % (39.0-53.0) 44.8 % (39.0-53.0) Mean Corpuscular Volume 88 fL (79-100) 89 fL (79-100) Mean Corpuscular Hemoglobin 30 pg (25-35) 30 pg (25-35) Mean Corpuscular Hemoglobin Concent 34 g/dL (31-37) 34 g/dL (31-37) Red Cell Distribution Width 14.5 % (11.5-14.5) 14.8 % (11.5-14.5) Platelet Count 297 x10^3/uL (140-400) 277 x10^3/uL (140-400) Neutrophils (%) (Auto) 71 % (31-73) 71 % (31-73) Lymphocytes (%) (Auto) 21 % (24-48) 22 % (24-48) Monocytes (%) (Auto) 7 % (0-9) 7 % (0-9) Eosinophils (%) (Auto) 0 % (0-3) 0 % (0-3) Basophils (%) (Auto) 0 % (0-3) 0 % (0-3) Neutrophils # (Auto) 4.8 x10^3/uL (1.8-7.7) 5.4 x10^3/uL (1.8-7.7) Lymphocytes # (Auto) 1.4 x10^3/uL (1.0-4.8) 1.6 x10^3/uL (1.0-4.8) Monocytes # (Auto) 0.5 x10^3/uL (0.0-1.1) 0.6 x10^3/uL (0.0-1.1) Eosinophils # (Auto) 0.0 x10^3/uL (0.0-0.7) 0.0 x10^3/uL (0.0-0.7) Basophils # (Auto) 0.0 x10^3/uL (0.0-0.2) 0.0 x10^3/uL (0.0-0.2) Sodium Level 131 mmol/L (136-145) 132 mmol/L (136-145) Potassium Level 4.2 mmol/L (3.5-5.1) 4.5 mmol/L (3.5-5.1) Chloride Level 96 mmol/L (98-107) 95 mmol/L (98-107) Carbon Dioxide Level 28 mmol/L (21-32) 30 mmol/L (21-32) Anion Gap 7 (6-14) 7 (6-14) Blood Urea Nitrogen 20 mg/dL (8-26) 20 mg/dL (8-26) Creatinine 1.2 mg/dL (0.7-1.3) 1.3 mg/dL (0.7-1.3) Estimated GFR (Cockcroft-Gault) 69.3 63.2 BUN/Creatinine Ratio 17 (6-20) 15 (6-20) Glucose Level 97 mg/dL (70-99) 90 mg/dL (70-99) Calcium Level 8.0 mg/dL (8.5-10.1) 8.1 mg/dL (8.5-10.1) Magnesium Level 1.6 mg/dL (1.8-2.4) Total Bilirubin 0.8 mg/dL (0.2-1.0) 1.0 mg/dL (0.2-1.0) Aspartate Amino Transf (AST/SGOT) 28 U/L (15-37) 31 U/L (15-37) Alanine Aminotransferase (ALT/SGPT) 28 U/L (16-63) 29 U/L (16-63) Alkaline Phosphatase 80 U/L (46-116) 85 U/L (46-116) Troponin I Quantitative 0.405 ng/mL (0.000-0.055) 0.573 ng/mL (0.000-0.055) RZ-Bju-R-Type Natriuretic Peptide 4179 pg/mL (0-124) Total Protein 6.6 g/dL (6.4-8.2) 6.5 g/dL (6.4-8.2) Albumin 2.6 g/dL (3.4-5.0) 2.8 g/dL (3.4-5.0) Albumin/Globulin Ratio 0.7 (1.0-1.7) 0.8 (1.0-1.7) Ethyl Alcohol Level < 10 mg/dL (0-10) Urine Collection Type Unknown Urine Color Abril Urine Clarity Clear Urine pH 5.5 (<5.0-8.0) Urine Specific [place] >=1.030 (1.000-1.030) Urine Protein 30 mg/dL (NEG-TRACE) Urine Glucose (UA) Negative mg/dL (NEG) Urine Ketones (Stick) Trace mg/dL (NEG) Urine Blood Negative (NEG) Urine Nitrite Negative (NEG) Urine Bilirubin Negative (NEG) Urine Urobilinogen Dipstick 1.0 mg/dL (0.2 mg/dL) Urine Leukocyte Esterase Negative (NEG) Urine RBC 0 /HPF (0-2) Urine WBC Rare /HPF (0-4) Urine Squamous Epithelial Cells Occ /LPF Urine Bacteria 0 /HPF (0-FEW) Urine Mucus Mod /LPF Urine Opiates Screen Neg (NEG) Urine Methadone Screen Neg (NEG) Urine Barbiturates Neg (NEG) Urine Phencyclidine Screen Neg (NEG) Urine Amphetamine/Methamphetamine Pos (NEG) Urine Benzodiazepines Screen Pos (NEG) Urine Cocaine Screen Neg (NEG) Urine Cannabinoids Screen Pos (NEG) Urine Ethyl Alcohol Neg (NEG) Images: Images PROCEDURE: PORTABLE CHEST 1V XR CHEST 1V History: Reason: chest pain / Spl. Instructions: / History: Comparison: June 03, 2021 Findings: Moderate interstitial and alveolar opacities. No pleural effusion. No pneumothorax. Enlarged cardiac size. Impression: 1. Moderate interstitial and alveolar opacities, may represent pulmonary edema or infection. 2. Enlarged cardiac size. Overall decreased compared to prior. Assessment/Plan Assessment/Plan Chest pain, rule out ACS versus myopericarditis History of Covid infection Recent history of pericardial effusion, likely complication of Covid infection Elevated troponins likely related to type II demand ischemia Acute electrolyte derangementhyponatremia, hypochloremia likely due to volume depletion Hypomagnesemia Severe protein malnutrition Benzodiazepine, amphetamine, cannabinoid positivity History of polysubstance abuse Admit to hospitalist service for further management Cardiology consult IV diuresis as needed No antiplatelet for now Lovenox for DVT prophylaxis Protonix GI prophylaxis ADA diet CODE STATUS full Discussed with RN and SW Disposition inpatient management as above DPOA: Undesignated Justifications for Admission Other Justification LILLI HOLT MD Jun 11, 2021 08:05
--- NOTE | 2021-06-11 08:26 | EKG ---
[facility] [address] [place] [address] Test Date: 2021-06-10 Test Time: 20:16:39 Pat Name: GLENROY BERUMEN Department: Room: [facility] Gender: M Motel Clerk: : 1985 Requested By: VICKIE CURRIE Order Number: [id number] Reading MD: Sg Adams MD Measurements Intervals Freedom Rate: 124 P: 12 CO: 132 QRS: 204 QRSD: 94 T: 59 QT: 310 QTc: 449 Interpretive Statements SINUS TACHYCARDIA Electronically Signed On 06-11-2021 17:15:00 CDT by Sg Adams MD
--- NOTE | 2021-06-11 13:07 | NUR ---
SS following for discharge planning. SS reviewed pt chart and discussed with pt RN. Pt is from home and is currently requiring oxygen at four liters nasal canula. COVID19 positive. Cardiology consulted. Pt positive for Methamphetamines and THC. PAT team referral made for assessment and resources. Pt has no home oxygen. Discharge plan is currently to home when medically ready for discharge. SS will continue to follow for discharge planning.
[2021-06-11] MEDS ORDERED: SENNOSIDES 8.6 MG TABLET PO PRN ×2 (13:15)
[2021-06-11] MEDS ORDERED: DOCUSATE SODIUM 100 MG CAPSULE. PO PRN ×2 (13:15)
[2021-06-11] MEDS ORDERED: DEXTROSE 50% 25 GM / 50ML DISP.SYRIN. IV PRN ×2 (13:15)
[2021-06-11] MEDS ORDERED: ACETAMINOPHEN 325 MG TABLET. PO PRN ×2 (13:15)
[2021-06-11] MEDS ORDERED: PROCHLORPERAZINE 10 MG/2 ML VIAL. IV PRN ×2 (13:15)
[2021-06-11] MEDS ORDERED: ONDANSETRON PF 4 MG/2 ML VIAL. IVP PRN ×2 (13:15)
[2021-06-11] MEDS ORDERED: FUROSEMIDE 40 MG/4 ML VIAL. IVP ONE (13:30)
[2021-06-11] MEDS ORDERED: METOPROLOL IV PUSH 5 MG/5 ML VIAL. IVP ONE (13:30)
--- NOTE | 2021-06-11 13:39 | PDOC ---
CARDIO Progress Notes Date and Time Date of Service 06/11/2021 Time of Evaluation 1320 Subjective Subjective: No Chest Pain, No shortness of breath, No Palpitations Vitals Vitals Vital Signs Date Time Temp Pulse Resp B/P (MAP) Pulse Ox O2 Delivery O2 Flow Rate FiO2 06/11/21 11:00 98.5 125 133/81 (98) 99 Room Air 98.5 06/11/21 08:00 4.0 06/11/21 07:58 20 Weight Weight [ ] Input and Output Intake and Output Intake and Output 06/11/21 07:00 Intake Total 0 ml Balance 0 ml Intake Oral 0 ml Laboratory Labs Laboratory Tests Test 06/10/21 21:12 06/10/21 23:55 06/11/21 01:30 06/11/21 10:55 White Blood Count 6.7 x10^3/uL (4.0-11.0) 7.6 x10^3/uL (4.0-11.0) Red Blood Count 4.80 x10^6/uL (4.30-5.70) 5.05 x10^6/uL (4.30-5.70) Hemoglobin 14.4 g/dL (13.0-17.5) 15.2 g/dL (13.0-17.5) Hematocrit 42.0 % (39.0-53.0) 44.8 % (39.0-53.0) Mean Corpuscular Volume 88 fL (79-100) 89 fL (79-100) Mean Corpuscular Hemoglobin 30 pg (25-35) 30 pg (25-35) Mean Corpuscular Hemoglobin Concent 34 g/dL (31-37) 34 g/dL (31-37) Red Cell Distribution Width 14.5 % (11.5-14.5) 14.8 % (11.5-14.5) Platelet Count 297 x10^3/uL (140-400) 277 x10^3/uL (140-400) Neutrophils (%) (Auto) 71 % (31-73) 71 % (31-73) Lymphocytes (%) (Auto) 21 % (24-48) 22 % (24-48) Monocytes (%) (Auto) 7 % (0-9) 7 % (0-9) Eosinophils (%) (Auto) 0 % (0-3) 0 % (0-3) Basophils (%) (Auto) 0 % (0-3) 0 % (0-3) Neutrophils # (Auto) 4.8 x10^3/uL (1.8-7.7) 5.4 x10^3/uL (1.8-7.7) Lymphocytes # (Auto) 1.4 x10^3/uL (1.0-4.8) 1.6 x10^3/uL (1.0-4.8) Monocytes # (Auto) 0.5 x10^3/uL (0.0-1.1) 0.6 x10^3/uL (0.0-1.1) Eosinophils # (Auto) 0.0 x10^3/uL (0.0-0.7) 0.0 x10^3/uL (0.0-0.7) Basophils # (Auto) 0.0 x10^3/uL (0.0-0.2) 0.0 x10^3/uL (0.0-0.2) Sodium Level 131 mmol/L (136-145) 132 mmol/L (136-145) Potassium Level 4.2 mmol/L (3.5-5.1) 4.5 mmol/L (3.5-5.1) Chloride Level 96 mmol/L (98-107) 95 mmol/L (98-107) Carbon Dioxide Level 28 mmol/L (21-32) 30 mmol/L (21-32) Anion Gap 7 (6-14) 7 (6-14) Blood Urea Nitrogen 20 mg/dL (8-26) 20 mg/dL (8-26) Creatinine 1.2 mg/dL (0.7-1.3) 1.3 mg/dL (0.7-1.3) Estimated GFR (Cockcroft-Gault) 69.3 63.2 BUN/Creatinine Ratio 17 (6-20) 15 (6-20) Glucose Level 97 mg/dL (70-99) 90 mg/dL (70-99) Calcium Level 8.0 mg/dL (8.5-10.1) 8.1 mg/dL (8.5-10.1) Magnesium Level 1.6 mg/dL (1.8-2.4) Total Bilirubin 0.8 mg/dL (0.2-1.0) 1.0 mg/dL (0.2-1.0) Aspartate Amino Transf (AST/SGOT) 28 U/L (15-37) 31 U/L (15-37) Alanine Aminotransferase (ALT/SGPT) 28 U/L (16-63) 29 U/L (16-63) Alkaline Phosphatase 80 U/L (46-116) 85 U/L (46-116) Troponin I Quantitative 0.405 ng/mL (0.000-0.055) 0.573 ng/mL (0.000-0.055) 0.439 ng/mL (0.000-0.055) WN-Ymi-X-Type Natriuretic Peptide 4179 pg/mL (0-124) Total Protein 6.6 g/dL (6.4-8.2) 6.5 g/dL (6.4-8.2) Albumin 2.6 g/dL (3.4-5.0) 2.8 g/dL (3.4-5.0) Albumin/Globulin Ratio 0.7 (1.0-1.7) 0.8 (1.0-1.7) Ethyl Alcohol Level < 10 mg/dL (0-10) Urine Collection Type Unknown Urine Color Abril Urine Clarity Clear Urine pH 5.5 (<5.0-8.0) Urine Specific [place] >=1.030 (1.000-1.030) Urine Protein 30 mg/dL (NEG-TRACE) Urine Glucose (UA) Negative mg/dL (NEG) Urine Ketones (Stick) Trace mg/dL (NEG) Urine Blood Negative (NEG) Urine Nitrite Negative (NEG) Urine Bilirubin Negative (NEG) Urine Urobilinogen Dipstick 1.0 mg/dL (0.2 mg/dL) Urine Leukocyte Esterase Negative (NEG) Urine RBC 0 /HPF (0-2) Urine WBC Rare /HPF (0-4) Urine Squamous Epithelial Cells Occ /LPF Urine Bacteria 0 /HPF (0-FEW) Urine Mucus Mod /LPF Urine Opiates Screen Neg (NEG) Urine Methadone Screen Neg (NEG) Urine Barbiturates Neg (NEG) Urine Phencyclidine Screen Neg (NEG) Urine Amphetamine/Methamphetamine Pos (NEG) Urine Benzodiazepines Screen Pos (NEG) Urine Cocaine Screen Neg (NEG) Urine Cannabinoids Screen Pos (NEG) Urine Ethyl Alcohol Neg (NEG) Physical Exam HEENT: Neck Supple W Full Motion Chest: Symmetric LUNGS: Other (crackles) Heart: RRR (sinus tachycardia) Extremities: No Calf Tenderness, Other (1-2+ bilateral LE pittingedema) Neurology: alert, oriented, follow commands Assessment Assessment HPI: This is a 36 yo male admitted for complains of chest pain. Reports this as sharp and occurred with cough. Also with some SOA. He was discharge on 06/05 and I have seen him at that time. He is significant for severe CM which is likely related to methamphetamine use. Also with associated covid-19 which myocarditis could not be completely ruled out. He is in acute CHF but improved with lasix. He has not been tested for sleep apnea. Presently he is in sinus tachycardia with elevated troponin. 1. Covid-19 unvaccinated: Treat per primary team. 2. Acute on chronic systolic heart failure. 2D echo showed LVEF 15%. 3. Pericardial effusion: Recent small pericardial effusion on 2D echo without any hemodynamic compromise 4. Substance abuse: recent UDS+ for meth, marijuana and benzodiazepine 5. Sinus tachycardia 6. Tobaccoism 7. Atypical CP: associated with cough 8. HTN: controlled 9. Morbid obesity 10. NSTEMI: possibly demand mediated peaked trop 0.5 no acute EKG changes 11. Severe cardiomyopathy Recommendation 1. Plan for outpt ischemic evaluation and will also need JUAN PABLO w/u 2. Lovenox in the next 24 hours.ASA and statin 3. Optimize HF regimen. Start on lisinopril. Restart coreg 4. Lasix therapy. 5. Nocturnal O2 monitoring. Bipap PRN 6. 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
[2021-06-11] MEDS: ASPIRIN ENTERIC COATED 81 MG TABLET.DR. PO SCH (14:20)
[2021-06-11] MEDS ORDERED: ENOXAPARIN 40 MG/0.4 ML SYRINGE. SQ SCH (16:00)
[2021-06-11] MEDS: CARVEDILOL 6.25 MG TABLET. PO SCH (17:10)
[2021-06-11] MEDS: ATORVASTATIN CALCIUM 10 MG TABLET. PO SCH (20:01)
[2021-06-12 03:13] VITALS: BP 145/70
[2021-06-12 05:02] LABS: BASO % 0 % (0-3); EOS % 0 % (0-3); HEMATOCRIT 42.6 % (39.0-53.0); HEMOGLOBIN 14.7 g/dL (13.0-17.5); LYMPH # 2.4 x10^3/uL (1.0-4.8); LYMPH % 35 % (24-48); MEAN CORPUSCULAR HEMOGLOBIN 30 pg (25-35); MEAN CORPUSCULAR HGB CONC 35 g/dL (31-37); MEAN CORPUSCULAR VOLUME 88 fL (79-100); MONO # 0.5 x10^3/uL (0.0-1.1); MONO % 8 % (0-9); NEUT # 3.9 x10^3/uL (1.8-7.7); NEUT % 57 % (31-73); PLATELET COUNT 269 x10^3/uL (140-400); RED BLOOD COUNT 4.85 x10^6/uL (4.30-5.70); RED CELL DISTRIBUTION WIDTH 14.6 % (11.5-14.5); WHITE BLOOD COUNT 6.8 x10^3/uL (4.0-11.0)
[2021-06-12 05:21] LABS: CALCIUM 7.9 mg/dL (8.5-10.1); CREATININE 1.1 mg/dL (0.7-1.3); GFR 76.6; MAGNESIUM 2.1 mg/dL (1.8-2.4); PHOSPHORUS 3.8 mg/dL (2.6-4.7); POTASSIUM 3.3 mmol/L (3.5-5.1)
[2021-06-12 07:00] VITALS: BP 131/76
[2021-06-12] MEDS: CARVEDILOL 6.25 MG TABLET. PO SCH ×2 (08:29→16:19)
[2021-06-12] MEDS: ASPIRIN ENTERIC COATED 81 MG TABLET.DR. PO SCH (08:29)
[2021-06-12] MEDS: LISINOPRIL 5 MG TABLET. PO SCH (08:30)
[2021-06-12] MEDS: FUROSEMIDE 40 MG/4 ML VIAL. IVP SCH (09:10)
[2021-06-12] MEDS ORDERED: POTASSIUM CHLORIDE 20 MEQ TABLET.ER. PO ONE (09:30)
[2021-06-12 11:00] VITALS: BP 131/73
--- NOTE | 2021-06-12 11:47 | PDOC ---
[facility] PROGRESS NOTE Date of Service DOS: DATE: 06/12/21 TIME: 11:43 Chief Complaint Chief Complaint Chest pain, rule out ACS versus myopericarditis Acute on chronic systolic heart failure with LVEF of 15% Pericardial effusion History of recent Covid infection Elevated troponins likely related to type II demand ischemia Acute electrolyte derangementhyponatremia, hypochloremia likely due to volume depletion Hypomagnesemia Severe protein malnutrition Benzodiazepine, amphetamine, cannabinoid positivity History of polysubstance abuse History of hypertension Morbid obesity [facility]/JUAN PABLO Cardiology consultrecommend to do outpatient ischemic evaluation. Continue aspirin and statin and optimize CHF regimen which includes lisinopril and Coreg. Continue with IV diuresis. Will need outpatient JUAN PABLO work-up IV diuresis as needed No antiplatelet for now Strict I's and O's Monitor urine output Lovenox for DVT prophylaxis Protonix GI prophylaxis ADA diet CODE STATUS full Discussed with RN and SW Disposition inpatient management as above DPOA: Undesignated History of Present Illness History of Present Illness 36 year old male who presents to the ED today complaining of 7 out of 10 substernal chest pain, symptoms began this evening around 5 PM. Patient states he was sleeping when the pain woke him up. Patient describes the pain as sharp and constant. Denies anything specifically exacerbating or relieving the pain. Patient is also complaining of cough and shortness of breath that have been going on since 06/03/2021. He states he was diagnosed with COVID-19 at the beginning of the month, he was hospitalized until Monday when he was discharged. His chart showed he had pericardial effusion as well. He states right now he is on a water pill. 06/12/2021 No acute events overnight. Patient is chest pain-free. Patient seen and examined bedside. Adequate urine output after IV Lasix. Pending further cardiac evaluation. Patient's chart, labs, images were reviewed and discussed with RN Vitals/I&O Vitals/I&O: Vital Signs Date Time Temp Pulse Resp B/P (MAP) Pulse Ox O2 Delivery O2 Flow Rate FiO2 06/12/21 11:00 96.3 100 18 131/73 (92) 96 Room Air 96.3 06/12/21 08:00 4.0 I & O 06/11/21 06/11/21 06/12/21 15:00 23:00 07:00 Intake Total 500 ml Output Total 700 ml 1000 ml 400 ml Balance -700 ml -1000 ml 100 ml Physical Exam General: Alert, Oriented X3, Cooperative Heart: Regular rate, No murmurs Lungs: Clear Abdomen: No tenderness Extremities: No edema Skin: No rashes Labs Labs: Laboratory Tests Test 06/12/21 04:30 White Blood Count 6.8 x10^3/uL (4.0-11.0) Red Blood Count 4.85 x10^6/uL (4.30-5.70) Hemoglobin 14.7 g/dL (13.0-17.5) Hematocrit 42.6 % (39.0-53.0) Mean Corpuscular Volume 88 fL (79-100) Mean Corpuscular Hemoglobin 30 pg (25-35) Mean Corpuscular Hemoglobin Concent 35 g/dL (31-37) Red Cell Distribution Width 14.6 % (11.5-14.5) Platelet Count 269 x10^3/uL (140-400) Neutrophils (%) (Auto) 57 % (31-73) Lymphocytes (%) (Auto) 35 % (24-48) Monocytes (%) (Auto) 8 % (0-9) Eosinophils (%) (Auto) 0 % (0-3) Basophils (%) (Auto) 0 % (0-3) Neutrophils # (Auto) 3.9 x10^3/uL (1.8-7.7) Lymphocytes # (Auto) 2.4 x10^3/uL (1.0-4.8) Monocytes # (Auto) 0.5 x10^3/uL (0.0-1.1) Eosinophils # (Auto) 0.0 x10^3/uL (0.0-0.7) Basophils # (Auto) 0.0 x10^3/uL (0.0-0.2) Sodium Level 130 mmol/L (136-145) Potassium Level 3.3 mmol/L (3.5-5.1) Chloride Level 93 mmol/L (98-107) Carbon Dioxide Level 30 mmol/L (21-32) Anion Gap 7 (6-14) Blood Urea Nitrogen 20 mg/dL (8-26) Creatinine 1.1 mg/dL (0.7-1.3) Estimated GFR (Cockcroft-Gault) 76.6 Glucose Level 100 mg/dL (70-99) Calcium Level 7.9 mg/dL (8.5-10.1) Phosphorus Level 3.8 mg/dL (2.6-4.7) Magnesium Level 2.1 mg/dL (1.8-2.4) C-Reactive Protein, Quantitative 64.7 mg/L (0-3.3) Assessment and Plan Assessmemt and Plan Problems Medical Problems: (1) Chest pain Status: Acute (2) CHF exacerbation Status: Acute (3) NSTEMI (non-ST elevated myocardial infarction) Status: Acute (4) Tachycardia Status: Acute Comment Review of Relevant I have reviewed the following items ashley (where applicable) has been applied. Medications: Current Medications Medications (Trade) Dose Ordered Sig/Lisset Route PRN Reason Start Time Stop Time Status Last Admin Dose Admin Furosemide (Lasix) 40 mg DAILY IVP 06/12/21 09:00 06/12/21 09:10 Furosemide (Lasix) 60 mg 1X ONCE IVP 06/11/21 13:30 06/11/21 13:33 DC 06/11/21 14:22 Carvedilol (Coreg) 6.25 mg BIDWMEALS PO 06/11/21 17:00 06/12/21 08:29 Metoprolol Tartrate (Lopressor Vial) 5 mg 1X ONCE IVP 06/11/21 13:30 06/11/21 13:33 DC 06/11/21 14:22 Aspirin (Ecotrin) 81 mg DAILYWBKFT PO 06/11/21 13:30 06/12/21 08:29 Enoxaparin Sodium (Lovenox 120mg Syringe) 120 mg Q12HR SQ 06/11/21 14:00 06/12/21 08:29 Lisinopril (Prinivil) 5 mg DAILY PO 06/12/21 09:00 06/12/21 08:30 Atorvastatin Calcium (Lipitor) 10 mg QHS PO 06/11/21 21:00 06/11/21 20:01 Potassium Chloride (Klor-Con) 40 meq 1X ONCE PO 06/12/21 09:30 06/12/21 09:31 DC 06/12/21 09:10 Justifications for Admission Other Justification Chest pain rule out ACS LILLI HOLT MD Jun 12, 2021 11:47
[2021-06-12 15:00] VITALS: BP 126/76
[2021-06-12] MEDS: ATORVASTATIN CALCIUM 10 MG TABLET. PO SCH (19:15)
[2021-06-12 19:30] VITALS: BP 105/65
[2021-06-12 23:09] VITALS: BP 122/66
[2021-06-13 03:14] VITALS: BP 117/71
[2021-06-13 05:02] LABS: BASO % 0 % (0-3); EOS # 0.2 x10^3/uL (0.0-0.7); EOS % 2 % (0-3); HEMATOCRIT 47.2 % (39.0-53.0); LYMPH # 2.1 x10^3/uL (1.0-4.8); LYMPH % 23 % (24-48); MEAN CORPUSCULAR HEMOGLOBIN 30 pg (25-35); MEAN CORPUSCULAR HGB CONC 34 g/dL (31-37); MEAN CORPUSCULAR VOLUME 89 fL (79-100); MONO # 0.7 x10^3/uL (0.0-1.1); MONO % 7 % (0-9); NEUT # 6.1 x10^3/uL (1.8-7.7); NEUT % 67 % (31-73); PLATELET COUNT 275 x10^3/uL (140-400); RED BLOOD COUNT 5.31 x10^6/uL (4.30-5.70); RED CELL DISTRIBUTION WIDTH 14.9 % (11.5-14.5); WHITE BLOOD COUNT 9.1 x10^3/uL (4.0-11.0)
[2021-06-13 05:20] LABS: CALCIUM 8.7 mg/dL (8.5-10.1); CREATININE 1.1 mg/dL (0.7-1.3); GFR 76.6; MAGNESIUM 2.1 mg/dL (1.8-2.4); POTASSIUM 4.1 mmol/L (3.5-5.1)
[2021-06-13 06:06] VITALS: BP 112/57
[2021-06-13] MEDS ORDERED: LISI-517 PO (08:09)
[2021-06-13] MEDS ORDERED: ATOR10TA60 PO (08:10)
--- NOTE | 2021-06-13 08:12 | DISCH ---
DISCHARGE INSTRUCTIONS Condition on Discharge Condition on Discharge: Stable Activity After Discharge Activity Instructions for Disc: Activity as tolerated Lifting Instructions after Dis: Do not lift >10 pounds Exercise Instruction after Dis: Walk 15 min, 3 x per day Driving Instructions after Dis: Do not drive today Diet after Discharge Diet after Discharge: Cardiac Diet Texture: Regular Liquid Texture: Thin Liquid Checks after Discharge Checks after discharge: Check blood press - daily Follow-Up Follow up with: PCP within 2 weeks of discharge Follow Up With: Cardiology as scheduled Treatment/Equipment after DC Adaptive Equipment Issued: None LILLI HOLT MD Jun 13, 2021 08:12
[2021-06-13 08:20] VITALS: BP 112/57
[2021-06-13] MEDS: LISINOPRIL 5 MG TABLET. PO SCH (08:20)
[2021-06-13] MEDS: ASPIRIN ENTERIC COATED 81 MG TABLET.DR. PO SCH (08:20)
[2021-06-13] MEDS: CARVEDILOL 6.25 MG TABLET. PO SCH (08:20)
[2021-06-13] MEDS: FUROSEMIDE 40 MG/4 ML VIAL. IVP SCH (08:21)
== END 2021-06-13 09:45 | disposition home or self-care (01) | DRG 280 ==
LOC: ER 20:08 → 6 SOUTH 21:55
PROVIDERS: ADMIT Student in an Organized Health Care Education/Training Program; ATTEND Student in an Organized Health Care Education/Training Program
DX: I11.0 Hypertensive heart disease with heart failure (principal); E43 Unspecified severe protein-calorie malnutrition; I21.A1 Myocardial infarction type 2; I24.9 Acute ischemic heart disease, unspecified; I31.9 Disease of pericardium, unspecified; E66.2 Morbid (severe) obesity with alveolar hypoventilation; E87.1 Hypo-osmolality and hyponatremia; I31.3 Pericardial effusion (noninflammatory); I50.23 Acute on chronic systolic (congestive) heart failure; I42.9 Cardiomyopathy, unspecified; Z68.39 Body mass index [BMI] 39.0-39.9, adult; E83.42 Hypomagnesemia; E86.9 Volume depletion, unspecified; E87.8 Other disorders of electrolyte and fluid balance, not elsewhere classified; R00.0 Tachycardia, unspecified; F17.200 Nicotine dependence, unspecified, uncomplicated
CPT/HCPCS: 36415; 71045; 80048; 80053; 80307; 81001; 83735; 83880; 84100; 84484; 85025; 86140; 93005; 96374; 96375; G0480; J1650; J1940; J2270; J3490; 99285-25; G0378